=== PATIENT | male | born 1945 | race Caucasian/White ===

== ENCOUNTER 2017-01-11 14:15 | Inpatient (IN) ==
--- NOTE | 2017-01-11 15:39 | HISTORY AND PHYSICAL ---
HISTORY OF PRESENT ILLNESS: This is a 71-year-old white male, well known to me. He has had just in the last month or two, he has gained fluid weight, can feel swelling in his legs and abdomen. Feels more short of breath. Some increased orthopnea and general weakness. Denies fever or chills. Denies chest pain or palpitations. PAST MEDICAL HISTORY: 1. Left shoulder surgery 1977 for shoulder. 2. Perianal cyst operated on 1993 and then again perirectal abscess 01/21/09. First one was done by Dr. Mcneill and second one by Dr. Reyes. 3. Vasectomy 13 years ago. 4. Broken nose in the past. 5. Fracture 4th digit left hand. 6. Diabetes mellitus type 2 which he has had for going on 20 years. 7. History of septicemia several years ago. 8. The patient was hospitalized for an incisive canal cyst and received local surgical debridement. 9. Cataract surgery. MEDICATIONS: I will review his list. FAMILY HISTORY: Father of gunshot wound. Mother lived to old age. History of TB in his father. 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 Served some time I think in the [employer] in [place]. SOCIAL HISTORY: Born in [facility]. Lived in [place] most of his life. Was for a time. Negative for tobacco. Occasional alcohol. REVIEW OF SYSTEMS: General: No weight gain or loss except for the fluid weight that he is appreciating in the last couple months. HEENT: Unremarkable. Respiratory: Increased orthopnea. Increased dyspnea on exertion. Cardiovascular: No chest pain or tachy palpitation. GI: Unremarkable. : Unremarkable. Neurologic: No focal neurologic complaints. He does have some peripheral neuropathy and some pedal edema. PHYSICAL EXAMINATION: GENERAL: Well developed, well nourished, white male. EYES: Pupils are equal and round. LUNGS: Clear in all lung delarosa. CARDIOVASCULAR: Regular rhythm and rate without murmur or S3. CVP about 10 cm water pressure. ABDOMEN: Mild distention. Could appreciate mild ascites. Positive hepatojugular reflux. EXTREMITIES: With 2+ pitting edema from ankle all the way to his knee. VITAL SIGNS: Blood pressure 130/90, pulse 84, respirations 18, weight 264 pounds. He was 240 pounds back in October. ASSESSMENT AND PLAN: 1. Recent echocardiogram showed ejection fraction 15%. Cardiomyopathy of unknown etiology. Suspect probable ischemic cardiomyopathy. I did an ultrasound of his abdomen and he has some mild ascites. I also can appreciate some pleural effusion. There is global hypokinesis, ejection fraction more prominent hypokinesis in the distal anterior chamber as well as apical portions. He has also had some trouble with constipation. We are going to ask Cardiology to help I am going to probably explore, put him on Entresto and diuresing him and looking at improving his compensation. Also need to explore why he has this cardiomyopathy. Eventually he will need a left heart catheterization. 2. Diabetes mellitus type 2. Check his renal function. It is complicated by peripheral neuropathy. We will check pattern sugars. Put him on sliding scale. 3. Hypertension. 4. Hypercholesterolemia. cc: Arik Santoro MD
[2017-01-11] MEDS ORDERED: SALINE LOCK IV FLUID XX ONE (16:13)
[2017-01-11 17:05] LABS: MANUAL DIFF NEEDED? NO
[2017-01-11 17:07] LABS: BASO% 0.3 % (0.0-0.8); EOS# 0.12 X1000 (0.0-0.7); HEMATOCRIT 43.3 % (42.0-52.0); HEMOGLOBIN 13.9 g/dL (14.0-18.0); LYMPH# 1.03 X1000 (1.2-3.4); LYMPH% 17.3 % (20.5-51.1); MCH 28.7 PG (27-31); MCHC 32.1 g/dL (33-37); MCV 89.5 FL (81-99); MONO# 0.83 X1000 (0.11-0.59); MONO% 13.9 % (1.7-9.3); MPV 11.4 FL (7.4-10.4); NEUT% 66.5 % (42.2-75.2); PLT 176 X1000 (130-400); RBC 4.84 XMIL (4.7-6.1)
[2017-01-11] MEDS ORDERED: [UNRECOGNIZED DRUG - OTHER] IV ONE (17:38)
[2017-01-11] MEDS ORDERED: [UNRECOGNIZED DRUG - MIXTURE] IV ONE (18:00)
[2017-01-11] MEDS: NATRECOR 1.5 MG in NS 250 ML IV SCH (18:32)
[2017-01-11] MEDS: LASIX IV SCH (18:33)
[2017-01-11] MEDS: LANOXIN IV SCH ×2 (18:33→23:05)
[2017-01-11 18:41] LABS: AGAP 10; BUN 12 mg/dL (8-22); CALCIUM 8.5 mg/dL (8.8-10.2); CHLORIDE 104 mmol/L (98-107); COSMO 288; POTASSIUM 4.8 mmol/L (3.5-5.1); SODIUM 144 mmol/L (136-145); TCO2 30 mmol/L (25-35)
[2017-01-11] MEDS: CAPOTEN PO SCH (20:51)
[2017-01-11] MEDS ORDERED: ENTRESTO 49 MG-51 MG TABLET PO SCH (21:00)
[2017-01-11] MEDS: CARAFATE PO SCH (21:07)
[2017-01-11] MEDS: GLUCOTROL PO SCH (21:07)
[2017-01-11] MEDS: REGLAN PO SCH (21:07)
--- NOTE | 2017-01-11 21:37 | CONSULTATION ---
DATE OF CONSULTATION: 01/11/2017 CONSULTATION REQUESTED BY: Arik Santoro MD REASON FOR CONSULTATION: Congestive heart failure. HISTORY: Mr. Munoz is a pleasant 71-year-old male who presented to Dr. Santoro's office with complaints of 4-5 weeks of increasing swelling of the lower extremities, paroxysmal nocturnal dyspnea, cough, dry for the most part, a general feeling of not doing well. Appetite has not been too good. The patient was referred for upper and lower endoscopies because he had some constipation issues and they did not see anything significant. The patient actually mentions that they identified a duodenal ulcer on him. The patient was referred also to have an echocardiogram about a week ago on January 04 which revealed dilatation of the left ventricle with significantly impaired function. The next day they did a contrast study with Definity and it showed a significantly impaired ejection fraction as well as significant diastolic dysfunction. The patient denies having any history of angina pectoris or previous myocardial infarction. He says that in August he was not very active. He has some limitations to exercise because of some peripheral neuropathy. PAST MEDICAL HISTORY: His past history is positive for diabetes mellitus for about 15 years. He has been treated with medications. PAST SURGICAL HISTORY: He does not have any significant surgical history. HOME MEDICATIONS: His home medications at the time of admission are not listed. ALLERGIES: He has no reported allergies. FAMILY HISTORY: His family history is noncontributory. SOCIAL HISTORY: He lives by himself. He has been from his second for about 6 years. 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 The patient has been a smoker in the past, up to 4 packs a day, however, he quit about 25 years ago. He had 3 grownup children. Daughter was in the room with him. REVIEW OF SYSTEMS: Review of systems beyond the fact that he has discomfort in the legs from "neuropathy" and he is really not very motivated to exercise is noncontributory. PHYSICAL EXAMINATION: Vital signs: Today weight is 256 pounds. The patient says that his normal weight is no more than 230 pounds. Temperature is 97.8. Pulse 101. Respirations 18. Blood pressure 127/85. The patient is awake, alert, oriented, in no distress. HEENT: Jugular veins are distended all the way up to the angle of the jaw. Chest: His chest shows significantly diminished breath sounds at the bases. There is some dullness to percussion. Cardiac: Heart sounds are tachycardic. There is a summation gallop. They are distant. There are some extrasystoles noted. Abdomen: Distended. No hepatomegaly is noted. There is questionable ascites on physical exam. He does have edema of the abdominal wall. Extremities: Showed 3+ edema bilaterally with diminished pulses. There are some dystrophic skin changes in the pretibial area bilaterally. 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 Neurologic: He moves four extremities, follows commands. Speech is clear. Cranial nerves appear to be normal. LABORATORY DATA: A 12-lead EKG done today shows sinus tachycardia with nonspecific T wave in the precordial leads, V1, V2, frequent PVCs, possible inferior infarct. IMPRESSION: 1. Patient presenting with symptoms of progressive dyspnea and weight gain with obvious generalized edema. He appears to be in Class D of congestive heart failure, Functional Class IV, [place] [employer]. Systolic dysfunction, probably chronic, with acute exacerbation. 2. Questionable coronary heart disease, abnormal EKG showing possible inferior scar. 3. Long-term history of diabetes mellitus. 4. Long-term history of tobacco use. 5. Recent diagnosis of duodenal/peptic ulcer. RECOMMENDATIONS: At this point in time, we will treat the patient for this acute fluid retention/exacerbation of congestive heart failure with combination of vasodilator, Captopril, initially at low dose, and then we will up titrate according to his tolerance. We will put him on digoxin and intravenous Natrecor as well as Lasix. We will check his electrolytes daily. We will make changes to his medications accordingly. The patient really needs to achieve euvolemia before we launch any extensive investigation to determine the underlying etiology of his congestive heart failure. At this point in time, based on the review of the echocardiogram, this could be a case of idiopathic dilated cardiomyopathy. At any rate, further investigations should be done once the patient is in a euvolemic state. His prognosis is definitely guarded given his age and severity of his left ventricular dysfunction and severity of his congestion. Will follow him along. Thank you for the opportunity to participate in his evaluation. cc: MD Arik Vargas MD
[2017-01-12] MEDS: LASIX IV SCH ×2 (05:05→17:23)
[2017-01-12] MEDS: CAPOTEN PO SCH ×3 (05:06→21:26)
[2017-01-12] MEDS: LANOXIN IV SCH ×2 (05:06→11:44)
--- NOTE | 2017-01-12 05:11 | EKG Report ---
Test Performed on : 01/11/2017 4:52:44 PM Test Reason : CHF/arrhythmia Blood Pressure : / mmHG Vent. Rate : 103 BPM Atrial Rate : 103 BPM P-R Int : 134 ms QRS Dur : 080 ms QT Int : 386 ms P-R-T Axes : 057 -11 022 degrees QTc Int : 505 ms Sinus tachycardia. with premature supraventricular complexes. and with occasional premature ventricu lar complexes. Possible Inferior infarct , age undetermined Abnormal ECG No previous ECGs available Confirmed by Ta Leong MD ([id number]) on 01/12/2017 7:58:09 AM
[2017-01-12 05:57] LABS: AGAP 11; BUN 11 mg/dL (8-22); CALCIUM 8.5 mg/dL (8.8-10.2); CHLORIDE 103 mmol/L (98-107); COSMO 289; MAGNESIUM 1.2 mg/dL (1.5-2.7); POTASSIUM 4.5 mmol/L (3.5-5.1); SODIUM 146 mmol/L (136-145); TCO2 32 mmol/L (25-35)
--- NOTE | 2017-01-12 07:19 | EKG Report ---
Test Performed on : 01/12/2017 06:38:21 AM Test Reason : Heart Failure Admission Blood Pressure : / mmHG Vent. Rate : 102 BPM Atrial Rate : 102 BPM P-R Int : 144 ms QRS Dur : 074 ms QT Int : 370 ms P-R-T Axes : 060 -35 -41 degrees QTc Int : 482 ms Sinus tachycardia. Left axis deviation Inferior infarct (cited on or before 11-JAN-2017) Abnormal ECG When compared with ECG of 11-JAN-2017 16:52, (Unconfirmed) premature ventricular complexes. are no longer present premature supraventricular complexes. are no longer present Confirmed by Salo WATKINS, Ta Lopez ([id number]) on 01/12/2017 7:59:00 AM
[2017-01-12] MEDS ORDERED: MAGNESIUM SULFATE 4 GM/S.W.I. 4 GM/100 ML IVPB IV ONE (07:29)
--- NOTE | 2017-01-12 07:35 | Diag Imaging Result Doc PS360 ---
EXAM: CHEST-2 VIEWS INDICATION: Heart Failure TECHNIQUE: 2 views COMPARISON: None. FINDINGS: Lung volumes are very low. There is blunting of the left costophrenic angle indicating a small effusion. There is suggestion of bibasilar atelectasis. There is crowding of the central vasculature. Cardiac silhouette is probably borderline prominent given magnification from AP technique. IMPRESSION: 1.Low lung volumes and bibasilar atelectasis. 2.Small left pleural effusion. 3.Borderline prominent heart. Electronically signed by Francis Hicks 01/12/2017 7:33 AM
[2017-01-12] MEDS: MIRALAX PO SCH (08:28)
[2017-01-12] MEDS: PRILOSEC PO SCH (08:29)
[2017-01-12] MEDS: CARAFATE PO SCH ×4 (08:30→21:26)
[2017-01-12] MEDS: LOVENOX SUBQ SCH (08:31)
[2017-01-12] MEDS: GLUCOTROL PO SCH ×2 (08:31→21:26)
--- NOTE | 2017-01-12 09:22 | PROGRESS NOTE ---
DATE: 01/12/2017 CHIEF COMPLAINT: Swelling, shortness of breath. SUBJECTIVE: The patient is breathing a little better. He has been diuresing all night. He feels like he has lost some weight, although objectively we do not have any documentation of that. He denies having any chest pain. His telemetry indicates that he is in sinus rhythm. His EKG this morning shows sinus tachycardia with left axis deviation. No acute ischemic changes. OBJECTIVE: Vital signs: Blood pressure 104/73, temperature 97.9, pulse 100, respirations 16. General: He is awake, alert, oriented, in no distress. HEENT: Jugular veins are still prominent. Chest: Diminished breath sounds at the bases. Some dullness to percussion at the bases. Cardiac: Heart sounds are regular and rhythmic, questionable gallop. Abdomen: Obese, distended. There is some ascites present. Extremities: Showed edema 2-3+. Neurologic: Follows commands, moves four extremities. LABORATORY DATA: Blood work today: Sodium 146, potassium 4.5, BUN 11, creatinine 1.1, magnesium 1.2. Pro BNP yesterday was 18,660. IMPRESSION: 1. Patient presenting with a relatively acute case of systolic congestive heart failure, class IV of the [place] [employer], with dyspnea at rest, paroxysmal nocturnal dyspnea. He has practically anasarca edema. 2. Patient who has a remote history of being a smoker. 3. History of diabetes mellitus type 2. 4. Recent diagnosis of duodenal ulcer. RECOMMENDATIONS: At this point in time, we will continue with IV Natrecor, digoxin, and the usual daily weight and fluid restriction measures. Because his magnesium is low, we will replace it. We will put him on Lovenox for deep venous thrombosis prophylaxis. Further advice will be forthcoming. cc: MD Arik Vargas MD
--- NOTE | 2017-01-12 09:50 | PROGRESS NOTE ---
DATE: 01/12/2017 SUBJECTIVE: He states he feels better, breathing better, more comfortable. Dr. Mauro has evaluated him. OBJECTIVE: Vital Signs: Temp 97.9 degrees, pulse 100, respirations 16, blood pressure 104/73. HEENT: Pupils are equal, round. Lungs: Clear in all lung delarosa. Cardiovascular: Regular rhythm and rate without murmur or S3. Abdomen: Soft. Skin: Warm and dry. Good urine output. LAB/DIAGNOSTIC DATA: White count 5950, hematocrit 43, platelet count 176,000. Sodium 146, potassium 4.5, chloride 103, BUN 11, creatinine 1.1. Magnesium is 1.20. Chest x-ray: Low lung volumes, bibasilar atelectasis, small left pleural effusion. Borderline prominent heart. ASSESSMENT/PLAN: Stage IV Beauregard classification of heart failure. Echo shows diffuse dyskinesis and less suggestive of coronary insufficiency. There are no areas of thinning of the wall and it was very symmetrical, consistent more with idiopathic. Question the patient, he has not drunk alcohol at any substantial level in several years. Note the magnesium is low. We will supplement. Since there is no data right now on acute congestive heart failure, will not use the Entresto but use TEA inhibitor. Use the captopril and eventually get him on some beta blockers as well. We will continue to diurese with 40 mg IV Lasix q.12 hours. We need to supplement the potassium and magnesium. cc: Arik Santoro MD
[2017-01-12] MEDS: POTASSIUM CHLORIDE 20% LIQUID PO SCH ×2 (11:41→21:27)
[2017-01-12] MEDS: MAG-OX PO SCH ×2 (11:41→21:27)
[2017-01-12] MEDS: NATRECOR 1.5 MG in NS 250 ML IV SCH ×2 (12:53→15:07)
[2017-01-12] MEDS: REGLAN PO SCH (21:26)
[2017-01-13] MEDS: LASIX IV SCH ×2 (05:14→17:42)
[2017-01-13] MEDS: CAPOTEN PO SCH ×3 (05:15→20:32)
--- NOTE | 2017-01-13 09:14 | PROGRESS NOTE ---
DATE: 01/13/2017 SUBJECTIVE: Mr. Munoz feels better. He can tell the fluid is coming off, especially his lower extremities and his breathing has improved. No chest pain or palpitations. He is comfortable. OBJECTIVE: Vital Signs: He remains afebrile. Temperature 98.9 degrees, pulse 102, respirations 18, blood pressure 108/74. HEENT: Pupils are equal. His CVP is less than 6 cm. No distended neck veins. Respiratory: Lungs are clear anterolateral. Cardiovascular: Regular rhythm and rate without murmur or By his report, he has good urine output. Blood pressures have been running between 104-153 and diastolic in the 70s. ASSESSMENT/PLAN: 1. Global dyskinesis of the left ventricle, cardiomyopathy, suspect idiopathic cardiomyopathy. He really has no history of alcohol abuse. He does not appear to be ischemic. He is improving with diuresis and afterload reduction at the present time. He is on captopril 6.25 mg q8. He is getting Lasix 40 mg IV q.12 hours. 2. Diabetes mellitus type 2. Continue his glipizide 5 mg b.i.d. 3. Hypomagnesemia. We have supplemented. Continue to give p.o. and give him some IV magnesium. 4. Hypercholesterolemia. Aware. We will check a lipid profile to see where we are. He would benefit from a statin. cc: Arik Santoro MD
[2017-01-13] MEDS: MAG-OX PO SCH ×2 (09:35→20:33)
[2017-01-13] MEDS: CARAFATE PO SCH ×4 (09:35→20:33)
[2017-01-13] MEDS: PRILOSEC PO SCH (09:35)
[2017-01-13] MEDS: GLUCOTROL PO SCH ×2 (09:35→20:33)
[2017-01-13] MEDS: LOVENOX SUBQ SCH (09:36)
[2017-01-13] MEDS: POTASSIUM CHLORIDE 20% LIQUID PO SCH ×2 (09:36→20:32)
[2017-01-13] MEDS: MIRALAX PO SCH (09:36)
[2017-01-13] MEDS: NATRECOR 1.5 MG in NS 250 ML IV SCH (11:29)
--- NOTE | 2017-01-13 13:17 | PROGRESS NOTE ---
DATE: 01/13/2017 SUBJECTIVE: Patient denies dyspnea on supplemental oxygen per nasal cannula. There has been no chest pain. OBJECTIVE: Vital Signs: Blood pressure ranging from 81/51 to 108/74. Heart rate 100-110 with ECG monitor showing sinus rhythm. Neck: Vein distention still evident. Chest: Auscultation of the chest reveals diminished breath sounds at bases bilaterally. Cardiac Exam: Reveals a regular rate and rhythm without appreciable murmur or gallop. Extremities: Demonstrate 2+ edema. IMPRESSION: 1. Acute systolic heart failure. 2. Type 2 diabetes mellitus. 3. Recent diagnosis of duodenal ulcer. 4. Remote history of cigarette use. RECOMMENDATIONS: 1. Continue diuresis with intravenous Lasix, intravenous Natrecor. 2. Continued to give low-dose captopril as tolerated depending on pressure. Once diuresis is further along we may have more success in giving him captopril. cc: MD Arik De Anda MD
[2017-01-13] MEDS: REGLAN PO SCH (20:33)
[2017-01-14 05:09] LABS: HDL 32 mg/dL (35-55); LDL 58 mg/dL; TRIGLYCERIDES 121 mg/dL (39-160); VLDL 24 mg/dL
[2017-01-14 05:10] LABS: AGAP 8; BUN 15 mg/dL (8-22); CALCIUM 8.8 mg/dL (8.8-10.2); CHLORIDE 98 mmol/L (98-107); COSMO 287; POTASSIUM 4.2 mmol/L (3.5-5.1); SODIUM 143 mmol/L (136-145); TCO2 37 mmol/L (25-35)
[2017-01-14] MEDS: LASIX IV SCH ×2 (05:36→17:23)
[2017-01-14] MEDS: CAPOTEN PO SCH ×3 (05:36→20:01)
[2017-01-14] MEDS: PRILOSEC PO SCH (09:31)
[2017-01-14] MEDS: CARAFATE PO SCH ×4 (09:31→20:01)
[2017-01-14] MEDS: POTASSIUM CHLORIDE 20% LIQUID PO SCH ×2 (09:31→20:01)
[2017-01-14] MEDS: GLUCOTROL PO SCH ×2 (09:31→20:01)
[2017-01-14] MEDS: MAG-OX PO SCH ×2 (09:31→20:01)
[2017-01-14] MEDS: LOVENOX SUBQ SCH (09:32)
--- NOTE | 2017-01-14 10:27 | PROGRESS NOTE ---
DATE: 01/14/2017 SUBJECTIVE: Mr. Munoz is feeling much better. Breathing much better. He has lost about 36 pounds of fluid. OBJECTIVE: Vital signs: Remains afebrile. Temp 98.3 degrees, pulse 98, respirations 18, blood pressure 116/55. HEENT: Pupils are equal, round. Lungs: Clear in all lung delarosa. Cardiovascular: Regular rhythm and rate without murmur or S3. Abdomen: Soft. Skin: Warm and dry. : Urine output 1800 to 1900 mL. LABS: Blood sugars 91, 94, 112. ASSESSMENT AND PLAN: 1. Acute systolic heart failure. Responding to diuresis. Lost 36 pounds of fluid. Feels much better. Breathing much better. Continue present regimen. I anticipate he might be able to go home tomorrow. 2. Diabetes mellitus type 2. 3. Recent diagnosis of duodenal ulcer. 4. History of cigarette use. 5. Nutrition looks good. 6. History of hypercholesterolemia. REVIEW OF HIS ORDERS: He is on captopril 6.25 mg q.8 hours. He is on Lasix 40 mg IV q.12 hours, glipizide 5 mg b.i.d., magnesium oxide 800 mg b.i.d. His renal function is doing well. His magnesium was 1.5. Recheck electrolytes and magnesium again tomorrow. cc: Arik Santoro MD
--- NOTE | 2017-01-14 11:01 | Diag Imaging Result Doc PS360 ---
EXAM: CHEST-2 VIEWS HISTORY: pulmonary edema TECHNIQUE: COMPARISON: 01/12/2017 FINDINGS: Poor inspiratory effort. There are small pleural effusions. The heart is not enlarged. There is basilar atelectasis versus small infiltrates. Overall the findings are slightly less pronounced than on the prior exam. IMPRESSION: Mild interval improvement Electronically signed by Nicho Damico 01/14/2017 10:59 AM
[2017-01-14] MEDS: NATRECOR 1.5 MG in NS 250 ML IV SCH (11:05)
[2017-01-14] MEDS: MIRALAX PO SCH (13:04)
--- NOTE | 2017-01-14 17:44 | PROGRESS NOTE ---
DATE: 01/14/2017 SUBJECTIVE: Patient relates feeling better. He denies dyspnea on room air. There has been no chest pain. OBJECTIVE: Vital Signs: Blood pressure 116/70, heart rate 102 and regular. Neck: Jugular venous pressure appears to be normal. Chest: Auscultation of the chest reveals minimal inspiratory crackles in the bases bilaterally. Cardiac Exam: Reveals a regular rate and rhythm without appreciable gallop. Extremities: Demonstrate mild pretibial edema. LAB DATA: Includes BUN 15, creatinine 1.1, potassium 4.2. IMPRESSIONS: 1. Acute systolic heart failure, improving. 2. Type 2 diabetes mellitus. 3. Recent diagnosis of duodenal ulcer. 4. Remote history of cigarette use. RECOMMENDATIONS: 1. Slow diuresis but continue to use intravenous Lasix. Discontinue Natrecor. 2. Increase low-dose captopril as tolerated. cc: MD Arik De Anda MD
[2017-01-14] MEDS: REGLAN PO SCH (20:01)
[2017-01-15 05:21] LABS: CALCIUM 8.8 mg/dL (8.8-10.2); POTASSIUM 4.8 mmol/L (3.5-5.1)
[2017-01-15] MEDS: LASIX IV SCH (06:02)
[2017-01-15] MEDS: CAPOTEN PO SCH (06:02)
[2017-01-15 07:44] VITALS: BP 101/57
[2017-01-15] MEDS: GLUCOTROL PO SCH (08:59)
[2017-01-15] MEDS: PRILOSEC PO SCH (08:59)
[2017-01-15] MEDS: MIRALAX PO SCH (08:59)
[2017-01-15] MEDS: CARAFATE PO SCH (08:59)
[2017-01-15] MEDS: MAG-OX PO SCH (09:00)
[2017-01-15] MEDS: LOVENOX SUBQ SCH (09:00)
[2017-01-15] MEDS: POTASSIUM CHLORIDE 20% LIQUID PO SCH (09:00)
--- NOTE | 2017-01-15 09:26 | DISCHARGE SUMMARY ---
ADMISSION DATE: 01/11/2017 DISCHARGE DATE: 01/15/2017 HISTORY AND HOSPITAL COURSE: This is a 71-year-old white male, well known to me. He presented on 01/11/2017 discharged on 01/15/2017. He has had about a month where he has had swelling, feels poor, general malaise, weakness, shortness of breath. Complicated by epigastric pain. Had an EGD and found he had a gastric ulcer, but still complaining of shortness of breath. Denies any chest pain, did an echocardiogram on him and found global hypokinesis. Ejection fraction 15%. Admitted, diuresed him to which he responded well. Initially was going to put him on Entresto, but there is no literature on acute heart failure, so we put him on captopril and he responded well. Diuresed almost 40 pounds of fluid. Clemons he could go home on 01/15/2017. PAST MEDICAL HISTORY: Reviewed. 1. Left shoulder surgery 1977 for shoulder. 2. Perianal cyst, operated on 1993. Again, perirectal abscess 01/21/2009. First one was done by Dr. Mcneill, second one by Dr. Reyes. 3. Vasectomy 13 years ago. 4. Broken nose in the past. 5. Fracture 4th digit left hand. 6. Diabetes mellitus type 2 which has been going on for 20 years. 7. Had septicemia several years ago. 8. Was hospitalized for incisive canal cyst and received local surgical debridement. 9. Cataract surgery. 10. Recent diagnosis of a gastric ulcer. LABS: Magnesium was a little low we supplemented and felt he could go home. DISCHARGE MEDICATIONS: Are as follows: Captopril, which is Capoten 12.5 mg 3 times a day. Lasix 40 mg p.o. twice a day. Glucotrol 5 mg b.i.d.; Mag-Ox 800 mg b.i.d.; Reglan, he takes 10 mg p.o. at bedtime. Prilosec 40 mg a day. MiraLAX 17 g p.o. daily as needed. Potassium chloride, we stopped. I will give him Klor-Con 20 mEq twice a day. Carafate 1 g 4 times a day. PLAN: See back in my office in about a week. Set him up to see Dr. Mauro in 2 weeks. We will need to pursue left heart catheterization of his coronaries at some point, but appears much better compensation. I suspect this may be idiopathic cardiomyopathy. He has a global hypokinesis with ejection fraction of 15%. Will follow up with echocardiogram to see if this improves at a later time. cc: Arik Santoro MD
[2017-01-15] MEDS ORDERED: PREVNAR 13 IM ONE (10:17)
[2017-01-15] MEDS ORDERED: PNEUMOVAX 23 IM ONE (10:24)
== END 2017-01-15 10:36 | disposition home or self-care (01) ==
LOC: DIRADM 14:15 → 3S 15:58
PROVIDERS: ADMIT Emergency Medicine; ATTEND Emergency Medicine

== ENCOUNTER 2019-02-11 15:16 | Inpatient (IN) ==
--- NOTE | 2019-02-11 16:25 | Diag Imaging Result Doc PS360 ---
EXAM: CHEST-1 VIEW INDICATION: sob TECHNIQUE: One view COMPARISON: 07/05/2017 FINDINGS: There is stable elevation of the right hemidiaphragm. There is suggestion of mild right basilar atelectasis. The lungs are grossly clear, otherwise. There is no discrete pleural fluid collection or pneumothorax. There are stable median sternotomy wires. The cardiac silhouette is borderline prominent. Central vasculature is unremarkable. IMPRESSION: No evidence of acute pathology by plain radiograph. Electronically signed by Francis Hicks 02/11/2019 4:23 PM
[2019-02-11 16:31] LABS: BASO# 0.02 X1000 (0.0-0.2); BASO% 0.1 % (0.0-0.8); HEMOGLOBIN 12.2 g/dL (14.0-18.0); IMM GRAN# 0.19 X1000 (0.0-0.04); IMM GRAN% 0.7 % (0.0-0.5); LYMPH# 1.12 X1000 (1.2-3.4); LYMPH% 4.4 % (20.5-51.1); MCH 28.7 PG (27-31); MCHC 33.9 g/dL (33-37); MCV 84.7 FL (81-99); MONO# 2.75 X1000 (0.11-0.59); MONO% 10.8 % (1.7-9.3); MPV 12.3 FL (7.4-10.4); NEUT# 21.39 X1000 (1.4-6.5); PLT 137 X1000 (130-400); PROTIME 15.9 Seconds (11.0-16.0); RBC 4.25 XMIL (4.7-6.1); RDW 13.6 % (11.5-14.5); WBC 25.47 X1000 (4.8-10.8)
[2019-02-11 16:32] LABS: INR 1.18
--- NOTE | 2019-02-11 16:32 | EKG Report ---
Test Performed on : 02/11/2019 4:30:12 PM Test Reason : CHF Blood Pressure : / mmHG Vent. Rate : 086 BPM Atrial Rate : 086 BPM P-R Int : 138 ms QRS Dur : 096 ms QT Int : 420 ms P-R-T Axes : 053 -22 067 degrees QTc Int : 502 ms Sinus rhythm. with occasional premature ventricular complexes. Moderate voltage criteria for LVH, may be normal variant Prolonged QT Abnormal ECG When compared with ECG of 05-JUL-2017 22:48, premature ventricular complexes. are now present T wave inversion no longer evident in Lateral leads QT has lengthened Unconfirmed Result
[2019-02-11 16:33] LABS: PTT 31.5 Seconds (22.3-41.8)
--- NOTE | 2019-02-11 16:50 | Diag Imaging Result Doc PS360 ---
EXAM: FOOT COMPLETE RIGHT INDICATION: foot pain, possible osteomyelitis TECHNIQUE: 3 views COMPARISON: None. FINDINGS: There is degenerative bone spurring at the distal tibia and the calcaneus. There are degenerative changes at the first MTP joint. There is no discrete fracture, dislocation, or significant intrinsic osseous lesion, otherwise. There are soft tissue ulcerations adjacent to the first MTP joint. However, no discrete bony erosions are identified to indicate osteomyelitis by plain radiograph. IMPRESSION: Soft tissue ulceration overlying the first MTP joint but no definite sign of osteomyelitis by plain radiograph. Electronically signed by Francis Hicks 02/11/2019 4:47 PM
--- NOTE | 2019-02-11 16:52 | Diag Imaging Result Doc PS360 ---
EXAM: FOOT COMPLETE LEFT INDICATION: injury TECHNIQUE: 3 views COMPARISON: None. FINDINGS: There is subcutaneous soft tissue gas and edema at the dorsum and undersurface of the forefoot indicating cellulitis. No underlying bony erosions are identified to indicate osteomyelitis by plain radiograph. There are bone spurs at the calcaneus and distal tibia. There is no discrete fracture, dislocation, or significant intrinsic osseous lesion, otherwise. IMPRESSION: Soft tissue edema and subcutaneous gas at the foot but no radiographic evidence of osteomyelitis on the current study. Electronically signed by Francis Hicks 02/11/2019 4:50 PM
[2019-02-11 16:53] LABS: ALB/GLOB RATIO 0.8; ALBUMIN 2.6 g/dL (3.5-5.0); CALCIUM 7.8 mg/dL (8.8-10.2); CREATININE 1.7 mg/dL (0.7-1.2); POTASSIUM 4.3 mmol/L (3.5-5.1); TOTAL BILIRUBIN 1.17 mg/dL (0.20-1.00); TOTAL PROTEIN 5.7 g/dL (6.3-8.3)
[2019-02-11] MEDS ORDERED: LEVAQUIN 500 MG/D5W 500 MG/100 ML IVPB IV SCH (17:45)
--- NOTE | 2019-02-11 18:58 | PROVIDER DOCUMENTATION ---
This chart was entered by Shruthi Zacarias Scribe, acting as scribe for Victor Manuel Stone MD. HPI-General Adult - General Chief Complaint: Shortness of Breath Stated Complaint: WEAKNESS Time Seen by Provider: 02/11/19 15:49 Source: patient Allergies/Adverse Reactions: Patient Allergies Allergy/AdvReac Type Severity Reaction Status Date / Time No Known Allergies Allergy Verified 08/29/17 11:20 Home Medications: Home Medication List Medication Instructions Recorded Confirmed Last Taken Type Glipizide 5 mg PO BID 01/11/17 08/29/17 07/05/17 09:30 History Omeprazole 40 mg PO DAILY 01/11/17 08/29/17 07/05/17 09:30 History Carvedilol [Coreg] 6.25 mg PO BID 07/05/17 08/29/17 07/05/17 09:30 History Digoxin [Lanoxin] 125 mcg PO QAM 07/05/17 08/29/17 07/05/17 09:30 History Magnesium Oxide 2 each PO BID 07/05/17 08/29/17 Unknown History Sucralfate [Carafate] 1 gm PO DIRECTED 07/05/17 08/29/17 Unknown History Aspirin 325 mg PO DAILY 08/29/17 08/29/17 Unknown History Atorvastatin Calcium [Lipitor] 40 mg PO HS 08/29/17 08/29/17 Unknown History Hydrocodone/Acetaminophen [[place] 1 each PO PRN PRN 08/29/17 08/29/17 Unknown History 5-325 Tablet] Insulin Glargine [Lantus] 20 unit SUBQ QAM 08/29/17 08/29/17 Unknown History Lisinopril 2.5 mg PO HS 08/29/17 08/29/17 Unknown History Sodium Hypochlorite 0.0125% 1 applic TOP DAILY 08/29/17 08/29/17 Unknown History [Dakin's Solution 0.0125%] - History of Present Illness -Gen Adult Nature of Presenting Problems: Patient is a 73 year old male who presents to the ED via EMS with shortness of breath, nausea, vomiting, diarrhea and bilateral feet pain. Patient states symptoms have been present for 6 days. Patient does not report chest pain. Location of Pain/Injury: reports: feet (bilateral) Pain Radiation: reports: no radiation Quality of Pain: reports: aching Severity: reports: mild Onset/Duration: reports: 6 days ago Timing: reports: still present Context/Activities at Onset: reports: light activity Modifying Factors: improves with: nothing Associated Symptoms: reports: diarrhea, nausea, shortness of breath, vomiting Similar Symptoms Previously?: Yes Recently seen or treated by another doctor?: No Review of Systems - Adult - REVIEW OF SYSTEMS - ADULT Constitutional: reports: no symptoms reported. denies: chills, fever, fatique Eyes: reports: no symptoms reported Ears, Nose, Mouth & Throat: reports: no symptoms reported Cardiovascular: reports: no symptoms reported Respiratory: reports: see HPI, shortness of breath. denies: cough, wheezing Gastrointestinal: reports: see HPI, diarrhea, nausea, vomiting. denies: abdominal pain Genitourinary: reports: no symptoms reported Musculoskeletal: reports: see HPI, other (bilateral feet pain). denies: back pain, neck pain Integumentary: reports: no symptoms reported Neurological: reports: no symptoms reported Psychiatric: reports: no symptoms reported Endocrine: reports: no symptoms reported Hematologic/Lymphatic: reports: no symptoms reported Allergic/Immunologic: reports: no symptoms reported All Other Systems: Reviewed and Negative Past History - Adult - PAST MEDICAL HISTORY-ADULT Review of Records: reports: Old Records Reviewed, Nursing Assessment Review, Medications Reviewed, Social history reviewed & non-contributory. Major Childhood Illnesses: reports: denies history Cardiovascular: reports: CHF Respiratory: reports: denies history Gastrointestinal: reports: denies history Obstetrical/Gynecological: reports: denies history Genitourinary: reports: denies history Musculoskeletal: reports: denies history Neurological: reports: denies history Endocrine/Immune: reports: Diabetes Other Conditions: reports: denies history - PRIOR SURGERIES/PROCEDURES Surgical/Procedure History: reports: reviewed, not pertinent, CABG - IMMUNIZATION STATUS Childhood Immunizations: See Nurse Assessment Flu Vaccine: See Nurse Assessment - FAMILY HISTORY Family History: reviewed, not pertinent - SOCIAL HISTORY Smoking: cigarettes (former) Substance Use: alcohol Alcohol Use Frequency: occasionally Physical Exam-General - PHYSICAL EXAM-ADULT Initial Vital Signs Reviewed: Yes - CONSTITUTIONAL General Appearance: alert, no apparent distress. negative: lethargic, slow to respond - HEAD, EARS, NOSE, MOUTH & THROAT HENMT: normocephalic/atraumatic, moist mucous membranes. negative: angioedema, hearing deficit - RESPIRATORY Respiratory: chest non-tender, lungs clear, normal breath sounds. negative: crackles, rhonchi, wheezing - CARDIOVASCULAR Cardiovascular: normal peripheral pulses, regular rate, rhythm. negative: tachycardia, systolic murmur - GASTROINTESTINAL (ABDOMEN) Abdominal Exam: normal bowel sounds, non tender, soft. negative: guarding, rebound - MUSCULOSKELETAL Extremity: other (open skin wounds to balls of bilateral feet. open skin wound to left foot has surrounding erythema and swelling with drainage present.). negative: deformity, pulse deficit - SKIN Integumentary: other (open skin wounds to balls of bilateral feet. open skin wound to left foot has surrounding erythema and swelling with drainage present.) . negative: cyanosis, ecchymosis, jaundice, rash - NEUROLOGIC Neurologic: grossly normal. negative: aphasia, facial droop - PSYCHIATRIC Psych/Mental Status: normal mood/affect, oriented x 3. negative: anxious Progress - PLAN OF CARE/RESULTS Progress/Plan/Lab Results: Vital Signs - 8 hr 02/11/19 15:40 Temperature 98 F Pulse Rate 90 Respiratory Rate 14 Blood Pressure 138/69 O2 Sat by Pulse Oximetry 99 Orders Category Date Time Status cxr [CHEST-1 VIEW] [RAD] Stat Exams 02/11/19 16:00 Taken CBC WITH ELECTRONIC DIFF [HEME] Stat Lab 02/11/19 15:45 Results COMPREHENSIVE METABOLIC PANEL [CHEM] Stat Lab 02/11/19 15:45 Received PRO B-NATRIURETIC PEPTIDE Stat Lab 02/11/19 15:45 Received PROTIME WITH INR [COAG] Stat Lab 02/11/19 15:45 Received PTT [COAG] Stat Lab 02/11/19 15:45 Received TROPONIN T Stat Lab 02/11/19 15:45 Received URINALYSIS [URINALYSIS] Stat Lab 02/11/19 16:06 Ordered EKG [EKG] Stat Ther 02/11/19 15:55 Ordered Result Diagrams: 02/11/19 15:45 02/11/19 15:45 - EKG 1 Time of EKG reading by physician:: 16:30 EKG Read and Signed by:: Victor Manuel Stone EKG Interpretation (*Must complete 3 of following elements*): Abnormal Rate: 86 Rhythm: sinus rhythm with occasional premature ventricular complexes Rodney: normal QRS: LVH (moderate voltage criteria, may be normal variant) [place] Interval: normal Comments: prolonged QT - XRAY 1 XRAY Study: Chest Impression: See EMR Report ( EXAM: CHEST-1 VIEW INDICATION: sob TECHNIQUE: One view COMPARISON: 07/05/2017 FINDINGS: There is stable elevation of the right hemidiaphragm. There is suggestion of mild right basilar atelectasis. The lungs are grossly clear, otherwise. There is no discrete pleural fluid collection or pneumothorax. There are stable median sternotomy wires. The cardiac silhouette is borderline prominent. Central vasculature is unremarkable. IMPRESSION: No evidence of acute pathology by plain radiograph. Electronically signed by Francis Hicks 02/11/2019 4:23 PM 02/11/19 1623 Interpreting Physician: Francis Hicks MD Dictated Date/Time: 02/11/19 1622 cc: Victor Manuel Stone MD; Arik Santoro MD) 2 XRAY: Left XRAY Study: Foot Impression: See EMR Report ( EXAM: FOOT COMPLETE LEFT INDICATION: injury TECHNIQUE: 3 views COMPARISON: None. FINDINGS: There is subcutaneous soft tissue gas and edema at the dorsum and undersurface of the forefoot indicating cellulitis. No underlying bony erosions are identified to indicate osteomyelitis by plain radiograph. There are bone spurs at the calcaneus and distal tibia. There is no discrete fracture, dislocation, or significant intrinsic osseous lesion, otherwise. IMPRESSION: Soft tissue edema and subcutaneous gas at the foot but no radiographic evidence of osteomyelitis on the current study. Electronically signed by Francis Hicks 02/11/2019 4:50 PM 02/11/19 1650 Interpreting Physician: Francis Hicks MD Dictated Date/Time: 02/11/19 1647 cc: Victor Manuel Stone MD; Arik Santoro MD) 3 XRAY: Right XRAY Study: Foot ( EXAM: FOOT COMPLETE RIGHT INDICATION: foot pain, possible osteomyelitis TECHNIQUE: 3 views COMPARISON: None. FINDINGS: There is degenerative bone spurring at the distal tibia and the calcaneus. There are degenerative changes at the first MTP joint. There is no discrete fracture, dislocation, or significant intrinsic osseous lesion, otherwise. There are soft tissue ulcerations adjacent to the first MTP joint. However, no discrete bony erosions are identified to indicate osteomyelitis by plain radiograph. IMPRESSION: Soft tissue ulceration overlying the first MTP joint but no definite sign of osteomyelitis by plain radiograph. Electronically signed by Francis Hicks 02/11/2019 4:47 PM 02/11/19 1647 Interpreting Physician: Francis Hicks MD Dictated Date/Time: 02/11/19 1645 cc: Victor Manuel Stone MD; Arik Santoro MD) - CONSULTS/PCP/HOSPITALIST Notification #1 *Consult/PCP/Hospitalist*: Dr Santoro Reason/Comments: paged at [phone] Consult Disposition: Admit (pending admit) #2 Consult: Dr Sumner Time Discussed: 19:00 Consult Disposition: Will see in ED, Admit Departure - Departure Date of Disposition Decision: 02/11/19 Time of Disposition Decision: 19:10 DIAGNOSIS: CHF (congestive heart failure), Cellulitis, Hyponatremia, Renal insufficiency Disposition: ADMITTED INPATIENT 09 Certified Medical Emergency: Emergent Condition: Fair Referrals and Follow-Ups: Arik Santoro MD [Primary Care Provider] - - Critical Care Note This patient required my direct & personal management of CC.: No Attestation - Physician/ MELIA Attestation Patient care was provided by Advanced Practice Provider:: No The physician spent face to face time with patient:: Yes Advanced Practice Provider documentation review:: Supervising physician onsite and consulted in the evaluation and care of this patient. The physician did have a face to face encounter with the patient. This chart was documented by the indicated scribe, (Shruthi Zacarias Scribe) and accurately reflects the services I performed and decisions made by me, Victor Manuel Stone MD, as attested by the provider's signature.
[2019-02-11 19:28] LABS: URINE SOURCE CLEAN CATCH
[2019-02-11 19:35] LABS: BILIRUBIN URINE NEGATIVE (NEGATIVE); BLOOD URINE MODERATE (NEGATIVE); COLOR YELLOW; GLUCOSE URINE NEGATIVE (NEGATIVE); KETONE URINE NEGATIVE (NEGATIVE); LEUKOCYTES URINE NEGATIVE (NEGATIVE); NITRITE URINE NEGATIVE (NEGATIVE); PROTEIN URINE TRACE mg/dL (NEGATIVE); SP GRAVITY URINE 1.014; TURBIDITY URINE HAZY (CLEAR); UR EPITHELIAL CELLS <10 /HPF (<10); URINE BACTERIA NEGATIVE /HPF; URINE WBC <10 /HPF (<10); UROBILINOGEN URINE NORMAL (NORMAL)
[2019-02-11] MEDS ORDERED: NS 500 ML IV ONE ×2 (20:16→23:55)
[2019-02-11] MEDS ORDERED: LOMOTIL PO PRN (23:55)
[2019-02-11] MEDS ORDERED: PRINIVIL PO SCH (23:55)
[2019-02-12] MEDS: ZOSYN 3.375 GM in NS 50 ML IV SCH ×4 (00:45→19:46)
[2019-02-12] MEDS: LOVENOX SUBQ SCH ×2 (00:46→23:03)
[2019-02-12] MEDS: NS 1,000 ML IV SCH ×2 (00:46→19:46)
[2019-02-12] MEDS: LIPITOR PO SCH ×2 (01:09→20:35)
[2019-02-12] MEDS: GLUCOTROL PO SCH ×3 (01:09→20:35)
[2019-02-12] MEDS: COREG PO SCH ×3 (01:09→20:35)
[2019-02-12] MEDS: TYLENOL PO PRN ×2 (04:25→23:15)
[2019-02-12] MEDS: PRILOSEC PO SCH ×2 (06:18→08:24)
--- NOTE | 2019-02-12 07:32 | HISTORY AND PHYSICAL ---
CHIEF COMPLAINT: Generalized weakness, diarrhea. PRESENT ILLNESS: Mr. Munoz is a 73-year-old gentleman who is brought to the emergency room by his daughter after approximately 4 days of intense diarrhea at home. She says he has not been drinking much and has only had 2 oranges and a milkshake in the past 3-4 days. He has had no appetite. Yesterday and today, he has had increased pain in his left foot and barely been able to walk to the bathroom and back. His evaluation here in the emergency room has revealed a white blood count of 25,470 and elevated BUN and creatinine, 66 and 1.7 respectively. Electrolytes are relatively normal with a sodium of 130. ER physician also noticed bandages on the soles of the feet and removed the one from the left foot which revealed a full thickness ulcer with a moderate amount of foul-smelling dark bloody drainage. He has had type 2 diabetes for over 20 years recently treated with insulin as well as glipizide. He has significant diabetic neuropathy. PAST MEDICAL HISTORY: Also remarkable for coronary artery disease. He presented with increasing edema 2 years ago and at that time, an echocardiogram showed a left ventricular ejection fraction of 15-20%. In June 2017, he had a witnessed ventricular tachycardia arrest and was seen in the emergency room here and transferred to [place] where he underwent coronary artery bypass grafting and a left carotid endarterectomy. He also has a history of previous acute pyelonephritis in 2005 and an incision and drainage of a perirectal abscess in 2008. For several months, ending in November of this year, he was followed by Dr. Rose at [facility] [place] for plantar ulcers which apparently healed but have recurred. ALLERGIES: He has no known allergies. FAMILY HISTORY: His mother of old age. His father of a gunshot wound. SOCIAL HISTORY: He is . 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 He has 2 adult daughters. He smoked years ago but not in recent years. He has only occasional social alcohol intake. REVIEW OF SYSTEMS: GENERAL: No headache, fever, chills, night sweats or weight loss. HEENT: Vision and hearing are adequate without recent changes. RESPIRATORY: Mild chronic dyspnea on exertion. No cough, wheezing or chest congestion. CARDIOVASCULAR: No recent chest pain or palpitations. No syncope or orthopnea, PND. His examination proctor is Dr. Mauro. GASTROINTESTINAL: Multiple watery bowel movements beginning day continuing through yesterday. He denies any blood in his diarrhea. No other abdominal pain. He denies any previous liver disease. He has a history of a gastric ulcer several years ago. No recent melena or bright red blood per rectum. NEUROLOGICAL: No history of strokes or seizures. PSYCHIATRIC: No memory, mood or thought disorders. PHYSICAL EXAMINATION: VITAL SIGNS: Temperature 98.8 degrees, blood pressure 139/75, pulse 90, respirations 19, O2 sat 99% on 2 liters of oxygen. GENERAL APPEARANCE: Alert, tired, elderly gentleman who is responsive. His daughter is at the bedside. SKIN: No rash but slightly decreased turgor. HEENT: Pupils are equal, round, reactive to light. Extraocular movements are intact. Oropharynx is benign. NECK: Supple with no JVD, adenopathy or bruits. There is a left carotid endarterectomy scar present. CHEST: Exam is clear bilaterally with good air movement. CARDIOVASCULAR: Regular rate and rhythm, normal S1 and S2. No S3 or murmurs are appreciated. ABDOMEN: Soft, mildly obese and nontender with active bowel. There is no guarding or rebound tenderness present. RECTAL: Deferred. EXTREMITIES: Left solis, left ankle and left foot are mildly edematous and warm with moderate increased redness. There are bilateral plantar ulcers on both soles near the first metatarsal heads with dark old blood draining after bandage removal. Sensation in his legs is diminished. Dorsalis pedis pulses are 1 to 2+ and equal. ASSESSMENT: 1. Diarrhea with dehydration and prerenal azotemia. 2. Chronic systolic congestive heart failure with history of ischemia cardiomyopathy status post CABG. 3. Type 2 diabetes mellitus treated with insulin with peripheral diabetic neuropathy. 4. Bilateral diabetic foot ulcers with cellulitis of the left foot and elevated white blood count. TREATMENT PLAN: We will cautiously IV rehydrate with normal saline. I have ordered some intravenous Zosyn for his foot ulcers. As his anion gap is normal, I doubt he has any significant lactic acidosis or sepsis. His foot ulcers may require specialized wound care and I will leave it up to Dr. Santoro to consult Dr. Moreau. I feel he would probably eventually benefit from full contact casts on both feet to heal his ulcers. I will also ask Dr. Mauro to assist in his care. cc: Nathen Sumner MD
[2019-02-12] MEDS: LANOXIN PO SCH (08:25)
[2019-02-12] MEDS: ASPIRIN PO SCH (08:25)
[2019-02-12 09:28] LABS: BASO# 0.02 X1000 (0.0-0.2); BASO% 0.1 % (0.0-0.8); EOS# 0.02 X1000 (0.0-0.7); EOS% 0.1 % (0.0-10.0); HEMATOCRIT 31.3 % (42.0-52.0); HEMOGLOBIN 10.4 g/dL (14.0-18.0); IMM GRAN# 0.13 X1000 (0.0-0.04); IMM GRAN% 0.5 % (0.0-0.5); LYMPH# 1.04 X1000 (1.2-3.4); LYMPH% 4.1 % (20.5-51.1); MCH 28.5 PG (27-31); MCHC 33.2 g/dL (33-37); MCV 85.8 FL (81-99); MONO# 2.32 X1000 (0.11-0.59); MONO% 9.1 % (1.7-9.3); MPV 12.6 FL (7.4-10.4); NEUT# 21.85 X1000 (1.4-6.5); NEUT% 86.1 % (42.2-75.2); PLT 133 X1000 (130-400); RBC 3.65 XMIL (4.7-6.1); RDW 13.6 % (11.5-14.5); WBC 25.38 X1000 (4.8-10.8)
[2019-02-12 10:04] LABS: BANDS 14 % (0-1); LYMPHS 2 % (21-51); MONO 8 % (1-9); SEGS 76 % (42-75)
[2019-02-12 10:18] LABS: CALCIUM 7.7 mg/dL (8.8-10.2); CREATININE 1.8 mg/dL (0.7-1.2); MAGNESIUM 2.5 mg/dL (1.5-2.7)
[2019-02-12] MEDS: LANTUS INSULIN SUBQ SCH (11:57)
--- NOTE | 2019-02-12 12:55 | EKG Report ---
Test Performed on : 02/12/2019 12:45:23 PM Test Reason : dyspnea Blood Pressure : / mmHG Vent. Rate : 074 BPM Atrial Rate : 074 BPM P-R Int : 138 ms QRS Dur : 098 ms QT Int : 458 ms P-R-T Axes : 044 -24 033 degrees QTc Int : 508 ms Sinus rhythm. with occasional premature ventricular complexes. Minimal voltage criteria for LVH, may be normal variant Nonspecific T wave abnormality Prolonged QT Abnormal ECG When compared with ECG of 11-FEB-2019 16:30, (Unconfirmed) No significant change was found Confirmed by Yvan WATKINS, Arik Watkins ([id number]) on 02/12/2019 3:53:26 PM
--- NOTE | 2019-02-12 13:55 | Diag Imaging Result Doc PS360 ---
CT THORAX W/O CONTRAST - 02/12/2019 INDICATION: Dyspnea, CAD, hx CHF COMPARISON: Chest x-ray 02/11/2019 FINDINGS: There is stable severe right hemidiaphragm elevation. There is some adjacent minimal atelectasis. There is mild COPD. No infiltrates or edema. There are CABG changes. Heart size is top normal. No pericardial effusion. Anemia is present. The gallbladder is rather distended. No surrounding inflammation or calcified stones. There are moderate degenerative changes of the spine. No acute or suspicious bony lesion. IMPRESSION: 1. Severe right hemidiaphragm elevation. 2. COPD. 3. Very distended gallbladder. Recommend gallbladder ultrasound. This exam was performed using automated exposure control, adjustment of mA or kV according to patient size, and/or use of iterative reconstruction technique Electronically signed by Riley Lucio 02/12/2019 1:53 PM
--- NOTE | 2019-02-12 14:00 | CARDIOLOGY CONSULTATION ---
DATE: 02/12/2019 CHIEF COMPLAINT: Shortness of breath, weakness, diarrhea. The main complaint is pain in the left foot. HISTORY OF PRESENT ILLNESS: Mr. Munoz is a pleasant 83-year-old male who is known to my service. He presented to the emergency room yesterday about 4 p.m. complaining of loose stools associated with weakness and increasing pain in the left foot and leg that has been getting worse over the preceding couple of weeks. The patient has not been eating well for several weeks. He denies having chest pain. He has foul smelling coming out of the foot. He says that he had an ulcer that had healed and then it broke out open again. He had been applying some antiseptic powder to it. He denies having chest pain, syncope, palpitations, vomiting or fever. He has experienced some chills. Of note, upon presentation did a white count was 25,170 with elevated BUN and creatinine, which was not normal for him. Initial proBNP level is 5672. Initial chest x-ray shows elevated right diaphragm with mild right basilar atelectasis. His EKG at the time of initial encounter showed sinus rhythm, rate is 86 beats per minute with nonspecific precordial T-wave change and a PVC. That EKG looks similar this morning done at 12:45 p.m. without any acute ischemic changes. PAST HISTORY: His past history is positive for severe coronary heart disease. Initial presentation 2 or 3 years ago with congestive heart failure, systolic. He actually suffered sudden cardiac . He was resuscitated and taken to [place]. Heart catheterization revealed 3 vessel coronary artery disease. He underwent coronary bypass procedure on 09/09/2016, including a mammary graft to LAD, a vein graft to right coronary artery, vein graft to marginal 1 and vein graft to diagonal 1. Subsequently, patient follow at my office. His ejection fraction from very low improved to nearly 50% and therefore AICD was not recommended. He was last seen in my office in July 2019 and he was seemingly doing well except that he had some ulcer in the right foot and we requested an arterial Doppler ultrasound to check his arterial circulation of the legs and that came back normal. Since then, he has been followed by Dr. Rk Santoro. He has carotid artery disease, chronic duodenal ulcer and tobacco use. SURGICAL HISTORY: He had coronary bypass surgery x 4 in 2017. He had also a carotid endarterectomy at that time in 2017. He has had shoulder surgery, perianal cyst twice. 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 He has been a tobacco user. FAMILY HISTORY: Noncontributory. ALLERGIES: Negative. HOME MEDICATIONS: Included: Aspirin daily, atorvastatin 40 at bedtime, carvedilol 6.25 twice a day, digoxin 0.125 daily, glipizide 5 mg twice a day, hydrocodone, acetaminophen, Sparks 5/325, Lantus insulin 20 units at bedtime. Lisinopril 2.5 at bedtime, magnesium oxide 2 tablets twice a day, omeprazole 40 mg daily, sucralfate 1 g as directed. REVIEW OF SYSTEMS: Lately, he has experienced a combination of problems with ulcers in the feet. There is pressure in the left foot with pain. Then loose stools and then increasing dyspnea. Those are the main positive. PHYSICAL EXAMINATION: Vital Signs: Blood pressure 104/53, temperature 98 degrees, pulse 74, respirations 18. Weight is 240 pounds. He appears to be acutely ill, somewhat tachypneic. HEENT: Unremarkable. Chest: Diminished breath sounds diffusely. Heart: Heart sounds are slightly tachycardia, irregular. I do not hear a gallop or murmur. Abdomen: Obese, nontender. Extremities: Showed evidence of decreased pulses with some dystrophic changes of the skin. Left foot is covered with a dressing; however, there is a foul odor coming out of the foot as in gangrene/infection. Neurologic: He follows commands for extremities. IMPRESSION: 1. Patient who presents with dyspnea, multifactorial. This appears to be happening in the setting of probable sepsis. I suspect soft tissue infection involving the left foot, cellulitis/early gangrene. 2. History of severe coronary heart disease, previous coronary bypass surgery. 3. History of systolic heart failure due to ischemic cardiomyopathy. This had resolved as per nuclear stress test that we did back in October 2017. 4. Hypokalemia. 5. Diarrhea, question of gastroenteritis or C difficile colitis. 6. Acute renal failure. RECOMMENDATIONS: At this time, the patient really needs to be treated for soft tissue infection with possible features of gangrene. Dr. Rk Santoro is at the helm of this case. We are suggesting to get Infectious Disease consultation. Also, get a CT scan of the thorax without contrast to make sure we are not missing any infiltrates in the lungs because a plain chest x-ray was suboptimal. We will check inflammatory markers, hemoglobin A1c, and we will follow him along. Cardiac-julio, we are going to get an echocardiogram as requested by Dr. Sumner last night and we will review it and advise. cc: MD Nathen Vargas MD [facility] CAMPUSBenito
[2019-02-12] MEDS ORDERED: ZYVOX 600 MG/D5W 600 MG/300 ML IVPB IV SCH (15:30)
--- NOTE | 2019-02-12 16:04 | PROGRESS NOTE ---
DATE: 02/12/2019 SUBJECTIVE: Mr. Munoz still feels pretty rough. OBJECTIVE: His blood pressure is marginal 96 to 138 over 50 to 69. Temperature was a 100.7 degrees. He is at times diaphoretic. No distended neck veins. At times, he complains of being short of breath, has a little bit tachypneic. Abdomen is nondistended, nontender. Cardiovascular: Regular rhythm and rate without murmur or S3. His left foot is swollen and with fluctuance. Dr. Dangelo aspirated some fluctuant material that smelled anaerobic. Concerned about infection. DIAGNOSTIC STUDIES: CT of his chest showed severe right hemidiaphragm elevation, COPD, and very distended gallbladder. Recommended gallbladder ultrasound. ASSESSMENT AND PLAN: I am going to plan to move him to the unit. Dr. Peralta has been consulted. I think this foot is going to need to be debrided. We may need to do some vascular studies in that leg, so we will move him to the unit. We will continue to give him some fluids. He has a history of coronary artery disease status post coronary artery bypass grafting and diabetes. His sugars have been running a little low. We will continue to pattern sugars and sliding scale. Creatinine is 1.8, which is stable. I think he has some underlying chronic kidney disease. Albumin is 2.6. We will get Wound Care involved and Dr. Dangelo is involved and Dr. Peralta. cc: MD Nathen Hdz MD
[2019-02-12] MEDS ORDERED: DIPRIVAN 1% ONE (16:59)
[2019-02-12] MEDS ORDERED: CLINDAMYCIN 600 MG/D5W 600 MG/50 ML IVPB IV SCH (17:00)
[2019-02-12] MEDS ORDERED: TORADOL ONE (18:12)
[2019-02-12] MEDS ORDERED: ZOFRAN ONE (18:12)
[2019-02-12] MEDS ORDERED: OFIRMEV 1000 MG/ISOTONIC SOLN 1,000 MG/100 ML BOTTLE ONE (18:12)
--- NOTE | 2019-02-12 18:33 | INFECTIOUS DISEASE CONSULT REP ---
DATE: 02/12/2019 CONCLUSION: The patient is admitted the hospital. He has a very severely infected left foot. There definitely is an abscess present and also cellulitis, but I am concerned he could have necrotizing fasciitis or even gas gangrene. The patient also has a very distended gallbladder. RECOMMENDATIONS: I have started the patient on Zosyn and discussed the patient with Dr. Santoro. We agree to also add Zyvox and clindamycin. Dr. Bacilio Peralta has been consulted to see the patient as soon as possible. I have ordered an ultrasound of the abdomen, specifically to look at the gallbladder. The patient's laboratory tests thus far show a CBC with a white count of 25,380, hemoglobin 10.4, and platelet count 133,000. The patient's creatinine is 1.8. GFR is 37. Liver function studies are normal except for a bilirubin of 1.17. CT scan of the chest shows severe right hemidiaphragm elevation, chronic obstructive pulmonary disease, and a very distended gallbladder. The x-ray of the patient's foot shows soft tissue ulceration overlying the 1st MTP joint, but no definite sign of osteomyelitis. PAST MEDICAL HISTORY/REVIEW OF SYSTEMS: Eyes and ears: Patient has decreased hearing. Vision is okay. Neck: No stiffness. Respiratory: Patient for the past 6 to 8 weeks has been short of breath, especially dyspnea on exertion. Cardiac: The patient has not had any chest pain or palpitations. GI: The patient in the past week has had diarrhea. : No dysuria or flank pain. Bones, joints, muscles: See present illness. Neurologic: No seizures. No recent loss of motor or sensory function. PREVIOUS HOSPITALIZATIONS AND OPERATIONS: He has had coronary artery bypass grafting, carotid endarterectomy, and myocardial infarction. MEDICAL DISEASES: Positive for diabetes mellitus, hypertension, myocardial infarction, coronary artery disease, carotid artery disease, and obesity. INFECTIOUS DISEASE HISTORY: Negative for pneumonia and UTI. FAMILY HISTORY: Positive for diabetes mellitus, hypertension, and myocardial infarction. SOCIAL HISTORY: The patient is . He lives alone. He has a dog as a pet. He does not smoke cigarettes or abuse drugs. He rarely drinks alcohol. PHYSICAL EXAMINATION: Vital signs: Temperature is 101 degrees, pulse 80, respirations 24, blood pressure 110/60. The patient is 6 feet 1 inch tall and weighs 240 pounds. General: This is an ill-appearing, somewhat dyspneic-appearing, also elderly male. Head, eyes, ears, nose, and throat: He can hear my spoken words and see me near objects. He does not have any white patches on his tongue. Neck: No meningismus. Lungs: Clear to auscultation. Cardiovascular: Heart rate is regular. Abdomen: Soft, nontender. Extremities: The patient's left foot is swollen, fluctuant. He has a necrotic area on the dorsum of the foot. I cleaned the foot with alcohol swabs and then stuck a needle in and a sanguinous, purulent, very foul smelling fluid came out. Neurologic: The patient is slightly lethargic. He can move his extremities. There is no tremor. His memory as regarding his medical history seemed to be intact. Integument: No rash noted. Thank you for the consult. cc: MD Nathen Shi MD MTDD
--- NOTE | 2019-02-12 19:05 | GENERAL SURGERY CONSULTATION ---
DATE: 02/12/2019 HISTORY OF PRESENT ILLNESS: This is a 73-year-old gentleman, with diabetes marginally controlled, who has had history of diabetic foot ulcers. He developed increased pain, swelling and erythema of his left foot over the last 24 hours. He was admitted. He was found to have fluctuance, erythema, leukocytosis, fevers, and I was consulted for further management. MEDICAL HISTORY: 1. Coronary disease. 2. Diabetes. 3. Actually, he has a history of sudden cardiac . 4. He had some ischemic cardiomyopathy that is improved. SURGICAL HISTORY: He has had coronary bypass x4 in 2017. He has got a carotid endarterectomy 2017, shoulder surgery, history of foot ulcers. SOCIAL HISTORY: He is retired, . 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 History of tobacco, but none currently. FAMILY HISTORY: Reviewed and noncontributory. REVIEW OF SYSTEMS: Ten-point negative. MEDICATIONS: He takes insulin, aspirin, and digoxin, but no other anticoagulants. PHYSICAL EXAMINATION: Vital Signs: 99.6 degrees. His temp has been as high as 100.2, pulse 81, blood pressure 104/55, oxygen saturation 96%. General: He is alert, in no acute distress. HEENT: No scleral icterus. No cervical mass. Cardiovascular: Normal rate. Pulmonary: No increased work of breathing. Abdomen: Soft, mildly distended. Integument: Warm and dry. Psychiatric: Appropriate affect. Neurologic: Pain in his left foot, but otherwise no gross deficits. Peripheral vascular: His feet are warm. Musculoskeletal: There is a erythema, discoloration with central ulcer dorsal aspect of the foot with purulent drainage, fluctuance, but no crepitus. The toes were adequately perfused at this juncture. There was also a right 1st plantar metatarsal noted ulcer. LABORATORY DATA: White count 25, hematocrit 31. INR is 1.18. Creatinine is 1.5. Glucose has fluctuated. His hemoglobin A1c is 9. Troponins are negative. Urinalysis shows moderate blood. IMAGES: I reviewed plain film x-rays of his foot that shows soft tissue air, but no dislocation, bony abnormality or foreign body. ASSESSMENT AND PLAN: This is a 73-year-old gentleman with severe infection of left foot, poorly- controlled diabetes, cardiac history. I have discussed risks of bleeding, infection, progressive and serial operations including amputation, which might be the case tonight. He understands and consents to incision and drainage of left foot infection and debridement with drain placement and possible amputation. He understands and consents. He is on antibiotics. Her family is here with him. cc: MD Nathen Finch MD
[2019-02-12 20:18] LABS: ALLEN TEST YES; BE 1.6 mmoll (-3.0-3.0); BLOOD TYPE ARTERIAL; HCO3-(ACT) 26.2 mmoll (20.0-26.0); METHB 1.1 % (0.0-1.5); O2(CT) 13.8 mL/dL (15.0-23.0); O2HB 96.4 % (95.0-99.0); PCO2(98.6) 38 mmHg (35-45); PO2(98.6) 99 mmHg (60-100); SAMPLE BLOOD; SAO2 99.6 % (95.0-100.0); THB 10.1 g/dL (11.5-17.4); pH(98.6) 7.44 (7.35-7.45)
[2019-02-12 20:21] LABS: MODALITY CANNULA
--- NOTE | 2019-02-12 22:48 | OPERATIVE NOTE ---
PROCEDURE DATE: 02/12/2019 PREOPERATIVE DIAGNOSIS: Diabetic foot infection, left. POSTOPERATIVE DIAGNOSIS: Diabetic foot infection, left. PROCEDURE PERFORMED: 1. Incision and drainage of left foot abscess with placement of Ainsley drain. 2. Excisional debridement of 7 x 9 cm wound down to the tendon and muscle. INDICATION: A gentleman with diabetes, worsening erythema and swelling of the left foot with purulent drainage consistent with abscess. No bony changes noted on x-ray. OPERATIVE FINDINGS: There was an abscess on the dorsal aspect of his foot extending down to the first and 2nd metatarsal space where there was a small ulcer noted. This extended down to the tendons, but there is no progressive necrosis noted other than some skin. OPERATIVE NOTE: Risks, benefits and alternatives were discussed. The patient consented to the procedure. Seen preoperatively. Surgical site was confirmed and marked. He was taken operating room placed supine position. General anesthesia induced. All bony prominences were padded. His foot was prepped with Betadine and draped in the usual fashion. After time-out, we incised the area of fluctuance and expressed a large amount of pus. Cultures were obtained. We debrided the necrotic skin and disrupted loculations. The purulence was draining from the depths of his foot and communicated with an ulcer on the bottom. We tunneled a [place] drain through this and secured it. We then irrigated the wound with Vashe. After noting viable tissue circumferentially, we packed it with Vashe gauze. Hemostasis noted. A Kerlix dressing was applied. He tolerated it well. No complications. cc: MD Nathen Finch MD
--- NOTE | 2019-02-13 00:55 | ECHO REPORT ---
ORDER DATE: 02/12/2019 MEASUREMENTS: Septal thickness 0.9, left ventricular internal diameter in diastole 5.7, posterior wall thickness 0.9. Aortic root 3.3, left atrium 5.0 SUMMARY: 1. Technically difficult study due to limited acoustic window quality. Intravenous echo contrast agent Optison was utilized to enhance endocardial definition. 2. Aortic valve is trileaflet and demonstrates very mild sclerotic change with adequate opening on 2-dimensional images. Peak gradient across aortic valve is less than 10 mmHg. Mild mitral annular calcification is demonstrated. There is mild mitral regurgitation. Tricuspid valve without evidence of structural abnormality, while pulmonic valve is not well demonstrated. There is mild tricuspid regurgitation. The estimated systolic PA pressure by Doppler is 40 mmHg, suggesting mild pulmonary hypertension. Aortic root is normal size. 3. Borderline left ventricular enlargement with normal wall thickness demonstrated. Estimated left ejection fraction approximately 35%. Hypokinesis of the apical septum, very apex of the left ventricle, and basal to mid inferior wall demonstrated. Left atrium is moderately enlarged. Right atrium and right ventricle are grossly normal in size with grossly preserved right ventricular systolic function. 4. No pericardial effusion. 5. Inferior vena cava not well demonstrated. cc: MD Tania De Anda PA Russell T. Barr, MD
[2019-02-13] MEDS: ZOSYN 3.375 GM in NS 50 ML IV SCH (03:02)
[2019-02-13] MEDS: MORPHINE IV PRN ×3 (03:03→21:50)
[2019-02-13 06:48] LABS: CALCIUM 7.3 mg/dL (8.8-10.2); CREATININE 2.3 mg/dL (0.7-1.2); MAGNESIUM 2.7 mg/dL (1.5-2.7); POTASSIUM 3.2 mmol/L (3.5-5.1)
[2019-02-13] MEDS ORDERED: ZOSYN 2.275 GM in NS 50 ML IV SCH (08:24)
--- NOTE | 2019-02-13 08:33 | Diag Imaging Result Doc PS360 ---
EXAM: US ABDOMEN-COMPLETE INDICATION: distended gallbladder COMPARISON: 01/04/2017 FINDINGS: The gallbladder is very distended and there is layering echogenic sludge in the gallbladder lumen. No shadowing stones are identified and no gallbladder wall thickening is appreciated. The common bile duct is normal in diameter. Sonographic Olmedo's sign was reported to be negative. The liver is grossly unremarkable. Portal venous flow is hepatopetal. The pancreas is obscured by gas. The proximal and mid aorta are also obscured. The distal aorta and IVC are grossly unremarkable. The spleen is unremarkable. The kidneys are grossly unremarkable. IMPRESSION: Distended gallbladder with echogenic sludge in the lumen. However, no common bile duct dilatation or wall thickening is appreciated. Electronically signed by Francis Hicks 02/13/2019 8:30 AM
[2019-02-13] MEDS: NS 1,000 ML IV SCH ×2 (08:46→22:21)
[2019-02-13] MEDS: ZYVOX PO SCH ×2 (08:46→21:45)
[2019-02-13] MEDS: PRILOSEC PO SCH (08:46)
[2019-02-13] MEDS: ASPIRIN PO SCH (08:46)
[2019-02-13] MEDS: COREG PO SCH ×2 (08:53→21:45)
[2019-02-13] MEDS: LANOXIN PO SCH (08:53)
[2019-02-13] MEDS: LANTUS INSULIN SUBQ SCH (08:53)
[2019-02-13] MEDS: GLUCOTROL PO SCH ×2 (08:53→21:37)
--- NOTE | 2019-02-13 09:32 | INFECTIOUS DISEASE PROGRESS NO ---
DATE: 02/13/2019 PRESENT ILLNESS: The patient is status post incision and drainage of a left foot abscess. Surgery was performed by Dr. Peralta. It does not appear that any bone was involved in the infection. MEDICATIONS: The patient is on Zosyn. PHYSICAL EXAMINATION: Vital Signs: Earlier temperature is 101 degrees, now it is 98 degrees, pulse 61, respirations 18, blood pressure 101/53. General: This is a somewhat ill-appearing elderly male. He is in no acute distress. Head, eyes, ears, nose, and throat: He can hear my spoken words and see near objects. He does not have any white patches on his tongue. Neck: No meningismus. Lungs: Clear to auscultation. Cardiovascular: Heart rate is regular. Abdomen: Soft and nontender. Extremities: I removed the dressing from the patient's left foot. It is much less swollen than it was yesterday. There is a large dorsal wound that is bleeding. It does have beefy red tissue. I did not see any necrosis nor did I see any devitalized tissue either on the foot. Neurologic: Patient is alert. He has decreased sensation in his feet. He can move his legs. LAB AND X-RAY: There is no new radiographic study today. The creatinine is 2.3. GFR is 28. There is no CBC for today. A Gram stain from the wound shows gram-positive cocci. The cultures are pending. ASSESSMENT AND PLAN: Patient has a drained abscess of the patient's left foot. There appears to be no bone involvement. I plan on continuing Zosyn but I have decreased the dose because of the patient's deteriorating kidney function. I have also started p.o. Zyvox 600 mg every 12 hours. COMORBIDITIES: The patient is elderly. He is a diabetic. He has peripheral vascular disease and the patient also is obese. cc: MD Nathen Shi MD
[2019-02-13] MEDS: ZOSYN 2.25 GM in NS 50 ML IV SCH ×3 (11:20→23:46)
[2019-02-13] MEDS ORDERED: KLOR-CON PO ONE (12:07)
--- NOTE | 2019-02-13 12:30 | PROGRESS NOTE ---
DATE: 02/13/2019 SUBJECTIVE: Mr. Munoz is feeling a little better. They did debridement with Dr. Peralta and it did not look like the infection extended to the bone. It looks like the granulation tissue underneath where he debrided. OBJECTIVE: He remains afebrile, temperature 96.9 degrees, pulse 70, respirations 14, blood pressure 111/56. Pupils are equal and round. Lungs are clear in all lung delarosa. Cardiovascular regular rhythm and rate without murmur or S3. Abdomen is soft. Skin is warm and dry. Urine output is 500 mL. ASSESSMENT AND PLAN: 1. Status post incision and drainage of left foot abscess per Dr. Peralta. It does not appear that the bone was involved. The patient is on Zosyn. Cultures are pending. 2. Ultrasound did show distended gallbladder, echogenic sludge in the lumen, however, no common bile duct dilatation or wall thickening appreciated. 3. History of severe coronary artery disease. Previous coronary bypass surgery. 4. History of systolic heart failure due to ischemic cardiomyopathy. This had resolved per nuclear stress test in October of 2014. 5. He had some hypokalemia supplement. 6. He is having some diarrhea, question of possible C. Difficile so stool sent for culture. 7. Acute renal failure. His creatinine is 2.3. On presentation, it was 1.7. Continue to watch his renal function carefully. ProBNP was 5672. Blood sugars have been running a little bit low so may back down on his insulin or Lantus to 10 units daily instead of 20. cc: MD Nathen Hdz MD
[2019-02-13] MEDS ORDERED: BLISTEX MEDICATED BERRY LIP BALM TOP PRN (15:18)
--- NOTE | 2019-02-13 20:21 | GENERAL SURGERY PROGRESS NOTE ---
DATE: 02/13/2019 SUBJECTIVE: No issues overnight. No further fevers documented. No tachycardia. OBJECTIVE: Vital Signs: Blood pressures have been systolics in the low 100s. Oxygen saturation high 90s on 3 L. General: He is alert. Extremities: His left foot dressing is recently changed, is clean. His toes are well perfused. There is no cellulitis extending up his foot. LABORATORY: No new labs this morning other than a creatinine of 2.3. Glucose was low overnight, but better this morning. Wound cultures are still pending. ASSESSMENT AND PLAN: This is a 73-year-old gentleman with diabetic foot infection. It has been drained and debrided and drain was placed. We will continue antibiotics per Dr. Dangelo, and local wound care with Vashe dressings twice a day. I talked to Saranya, our wound nurse. cc: MD Nathen Finch MD
[2019-02-13] MEDS: LIPITOR PO SCH (21:45)
[2019-02-13] MEDS: LOVENOX SUBQ SCH (23:46)
[2019-02-14] MEDS: ZOSYN 2.25 GM in NS 50 ML IV SCH (05:39)
[2019-02-14 06:33] LABS: BASO# 0.02 X1000 (0.0-0.2); BASO% 0.1 % (0.0-0.8); EOS# 0.09 X1000 (0.0-0.7); EOS% 0.5 % (0.0-10.0); HEMATOCRIT 29.6 % (42.0-52.0); HEMOGLOBIN 9.9 g/dL (14.0-18.0); IMM GRAN# 0.08 X1000 (0.0-0.04); IMM GRAN% 0.4 % (0.0-0.5); LYMPH% 4.2 % (20.5-51.1); MCH 28.8 PG (27-31); MCHC 33.4 g/dL (33-37); MONO# 1.07 X1000 (0.11-0.59); MONO% 5.7 % (1.7-9.3); MPV 11.8 FL (7.4-10.4); NEUT# 16.81 X1000 (1.4-6.5); NEUT% 89.1 % (42.2-75.2); PLT 192 X1000 (130-400); RBC 3.44 XMIL (4.7-6.1); RDW 14.2 % (11.5-14.5); WBC 18.87 X1000 (4.8-10.8)
[2019-02-14 06:57] LABS: POTASSIUM 3.9 mmol/L (3.5-5.1)
[2019-02-14 06:58] LABS: CALCIUM 7.6 mg/dL (8.8-10.2); CREATININE 2.2 mg/dL (0.7-1.2)
--- NOTE | 2019-02-14 08:27 | CARDIOLOGY PROGRESS NOTE ---
DATE: 02/14/2019 CHIEF COMPLAINT: Tachycardia, shortness of breath, pain in the foot, toxic state. SUBJECTIVE: Mr. Munoz underwent incision and drainage of a left foot abscess with placement of a Ainsley drain on 02/[address] Peralta. He is less toxic today. He is more clear-minded. He is not having any chest pain. Breathing seems to be more comfortable. OBJECTIVE: Vital signs: His blood pressure 108/70, temperature 98.6, pulse 83, respirations 16. General: He is awake. He is not toxic like he was 2 days ago. HEENT: Unremarkable. Chest: Shows diminished breath sounds, no definite rales. A chest CT that we did on 02/12 showed severe right hemidiaphragmatic elevation, COPD, no evidence of pulmonary congestion. His ProBNP was 5672 probably related to his acute renal failure. Heart: Sounds are regular and rhythm. I do not hear gallop or murmur. He does have some extrasystoles. Abdomen: Slightly prominent, nontender. Extremities: Showed decreased pulses. His left foot is covered. Neurological exam: He is more awake, follows commands. BLOOD WORK: His white cell count has dropped to 18,870. His sodium is 129, potassium 3.9, BUN 65, creatinine 2.2. Creatinine is a little better than yesterday, BUN is also a little better than yesterday. IMPRESSION: 1. Patient who presented essentially septic, toxic state, secondary to left foot abscess, that has been drained 48 hours ago. He is a little better today. 2. History of ischemic cardiomyopathy status post coronary artery bypass surgery. That appears to be stable. This patient has no indication of any real change in cardiac status. 3. Chronic obstructive pulmonary disease. 4. Distended gallbladder, reason for that is unclear. That is an incidental finding on the CT scan of the chest. 5. Diabetes mellitus type 2, which is not optimally controlled. Hemoglobin A1c on admission is 9%. 6. Acute renal failure probably secondary to sepsis, low cardiac output. 7. Hyponatremia. Multifactorial. RECOMMENDATIONS: At this point in time, the patient really needs to be treated extensively with antibiotics and surgical debridement to eliminate the source of infection. Cardiac-julio, there has been no change in this patient's status. His echocardiogram, which was suboptimal, indicated that his ejection fraction may be in the order of 35%. Given the fact that he is tachycardic and the echocardiographic study was suboptimal, I would not make or pass any judgment on the significance of this ejection fraction. This may have to be reassessed before the patient is discharged. Last time I checked his EF following his CABG, and after optimizing his medical therapy, it had come up very close to 50%. At this time, we are not going to be manipulating any cardiac medications. I will let the Primary team deal with infection and I will be available if there is any specific question regarding his cardiac management. At this time, I am going to sign off. cc: MD Nathen Vargas MD [email or web address]
--- NOTE | 2019-02-14 09:00 | INFECTIOUS DISEASE PROGRESS NO ---
DATE: 02/14/2019 PRESENT ILLNESS: The patient is status post incision and drainage of a left foot abscess. There appeared to be no involvement of bone. MEDICATIONS: The patient is in day 2 of treatment with a combination of Zyvox and Zosyn. PHYSICAL EXAMINATION: Vital Signs: Temperature is 98.6 degrees, pulse 83, respirations 16, blood pressure 108/70. General: This is an ill-appearing elderly male. He is in no acute distress. Head, eyes, ears, nose, and throat: The patient has a dark discoloration to his tongue this morning; he told me that he had just finished drinking grape juice. He does not have any pain in his tongue. He can hear my spoken words and see near objects. Lungs: Clear to auscultation. Cardiovascular: Heart rate is for the most part regular. There are occasional premature beats. Abdomen: Soft and nontender. Extremities: The patient's left foot dressing is intact. The patient's right foot has a plantar ulcer that is closing well. Neurologic: Patient is awake. He can move his extremities. There is no tremor. LAB AND X-RAY: CBC today shows a white count of 18,870, hemoglobin 9.9, and platelet count 192,000. Creatinine is 2.2. GFR is 30. The patient's Gram stain from the tissues at surgery showed gram-positive cocci. Cultures from surgery are growing gram negative rods. ASSESSMENT AND PLAN: Patient has a drained abscess of the patient's left foot. My plan is to continue Zyvox and Zosyn except I have changed Zyvox from IV to PO. COMORBIDITIES: The patient's comorbidities: He is elderly. He has diabetes mellitus as well as peripheral vascular disease. He also is obese. cc: MD Nathen Shi MD [facility]
--- NOTE | 2019-02-14 09:11 | PROGRESS NOTE ---
DATE: 02/14/2019 SUBJECTIVE: Mr. Munoz is feeling better than yesterday. OBJECTIVE: Vital signs: He remains afebrile, temperature 98.2 degrees this morning, pulse 82, respirations 20, blood pressure 121/65. HEENT: Pupils are equal and round. Lungs: Clear in all lung delarosa. Cardiovascular: Regular rhythm and rate without murmur or S3. Abdomen: Soft. Skin: Warm and dry. Genitourinary: Urine output is over 2000 mL. ASSESSMENT AND PLAN: 1. Echocardiogram. He has no left ventricular dysfunction. Good performance. 2. History of ischemic cardiomyopathy, status post coronary artery bypass surgery. Normal left ventricular function at this time. 3. Chronic obstructive pulmonary disease. 4. Distended gallbladder, and ultrasound just shows some sludge. 5. Diabetes mellitus type 2. Continue to pattern sugars. 6. Hyponatremia which appears resolved. 7. Leukocytosis from infection. 8. Infected left foot status post debridement. Continue broad-spectrum antibiotics. LABORATORY DATA: From this morning, sodium 129, potassium 3.9, chloride is 22, BUN 65, creatinine 2.2, so he does have some acute renal insufficiency and maybe a little bit of acute tubular necrosis. Hopefully this will improve. REVIEW OF ORDERS: He is on aspirin 325 mg a day, Lipitor 40 mg at bedtime, Coreg 6.25 mg b.i.d., Lanoxin 125 mcg p.o. q.a.m., Glucotrol 5 mg b.i.d., insulin glargine or Lantus decreased down to 10 units subcutaneous q.a.m., Zyvox 600 mg p.o. q.12, normal saline at 82 mL an hour, Prilosec 40 mg a day, Zosyn 2.25 g IV q.6. Waiting on cultures. Preliminary wound cultures gram-negative caryl. Waiting on ID. cc: MD Nathen Hdz MD
[2019-02-14] MEDS: COREG PO SCH ×2 (09:19→21:06)
[2019-02-14] MEDS: PRILOSEC PO SCH (09:19)
[2019-02-14] MEDS: GLUCOTROL PO SCH ×2 (09:20→21:04)
[2019-02-14] MEDS: LANOXIN PO SCH (09:20)
[2019-02-14] MEDS: ASPIRIN PO SCH (09:20)
[2019-02-14] MEDS ORDERED: ZOSYN 3.375 GM in NS 50 ML IV SCH (09:20)
[2019-02-14] MEDS: ZYVOX PO SCH ×2 (09:40→21:04)
[2019-02-14] MEDS: ZOSYN 3.375 GM in NS 50 ML IV SCH ×3 (09:41→21:03)
[2019-02-14] MEDS: LANTUS INSULIN SUBQ SCH (09:55)
[2019-02-14] MEDS: NS 1,000 ML IV SCH (10:36)
--- NOTE | 2019-02-14 20:47 | GENERAL SURGERY PROGRESS NOTE ---
DATE: 02/14/2019 SUBJECTIVE: Doing well. Hemodynamically stable. No fevers overnight. Dressing change is going well. OBJECTIVE: The wound is clean. Toes are perfused. Pulse 70s, blood pressure 122/76, oxygen saturation 97% on 3 L. Generally he is alert. Cardiovascular: Normal rate. Left foot: Toes are perfused. No cellulitis extending up. His dressing is clean, with no gross purulence. LABORATORY DATA: Wound cultures are growing out gram-negatives, multiple, and gram-positives. Labs: White count is down to 18, hematocrit is 29. Creatinine is 2.2, glucose 120s to 140s. ASSESSMENT AND PLAN: A 73-year-old gentleman with diabetic foot infection. We will follow up his cultures. We will keep him on antibiotics and dressing changes twice daily. [*]is following him for the weekend. cc: MD Nathen Finch MD
[2019-02-14] MEDS: LIPITOR PO SCH (21:04)
[2019-02-14] MEDS: LOVENOX SUBQ SCH (23:04)
[2019-02-15] MEDS: NS 1,000 ML IV SCH ×2 (02:13→15:52)
[2019-02-15] MEDS: ZOSYN 3.375 GM in NS 50 ML IV SCH ×4 (03:24→21:19)
[2019-02-15] MEDS: MORPHINE IV PRN ×2 (05:08→10:51)
--- NOTE | 2019-02-15 08:25 | PROGRESS NOTE ---
DATE: 02/15/2019 SUBJECTIVE: Mr. Munoz had a pretty good night. He has had loose stool though and he wants to get some Imodium. He is still on a liquid diet. I am going to advance him to a diabetic diet. OBJECTIVE: Vital signs: He has remained afebrile, temperature 97.5 degrees, pulse 89, respirations 20, blood pressure 150/60. HEENT: Pupils are equal round. Lungs: Clear in all lung delarosa. Cardiovascular: Regular rhythm and rate without murmur or S3. Abdomen: Soft. Skin: Warm and dry. Genitourinary: Urine output was 1200 mL. LABORATORY DATA: Blood sugars 117, 175, 166. We will send stool for Clostridium difficile. His foot cultures, wound cultures grew out E coli, Proteus mirabilis, Enterococcus faecalis group D and I do not see any extended spectrum beta lactamase on the E coli. ASSESSMENT: 1. Echocardiogram shows normal left ventricular function. He has a history of coronary artery disease status post triple bypass. 2. History of ischemic cardiomyopathy, which is improved. Left ventricular function is normal. 3. Chronic obstructive pulmonary disease. No trouble with air or gas exchange. 4. Aware of a distended gallbladder. Ultrasound showed some sludge. 5. Diabetes mellitus type 2. Sugars well controlled. 6. Hyponatremia which is resolved. 7. Leukocytosis from infection that is improved. 8. Left foot status post debridement. Encouraged that it does not appear to be down to the bone, so keep on present antibiotics. PLAN: We will advance his diet to a diabetic diet. He has some loose stools. Going to send stool off for Clostridium difficile. Note his white count has still been elevated but it seems to be coming down, and we will give him Imodium and I am going to start him on Questran Light 1 scoop twice a day. He said he has been having diarrhea even before his foot infection. cc: MD Nathen Hdz MD
[2019-02-15] MEDS: QUESTRAN LIGHT PO SCH ×2 (09:50→21:19)
[2019-02-15] MEDS: IMODIUM LIQUID PO PRN ×2 (09:51→17:39)
[2019-02-15] MEDS: ASPIRIN PO SCH (09:53)
[2019-02-15] MEDS: ZYVOX PO SCH ×2 (09:53→21:20)
[2019-02-15] MEDS: PRILOSEC PO SCH (09:53)
[2019-02-15] MEDS: COREG PO SCH ×2 (09:53→21:20)
[2019-02-15] MEDS: GLUCOTROL PO SCH ×2 (09:54→21:20)
[2019-02-15] MEDS: LANOXIN PO SCH (09:54)
[2019-02-15] MEDS: LANTUS INSULIN SUBQ SCH (09:54)
--- NOTE | 2019-02-15 12:19 | PROGRESS NOTE ---
DATE: 02/15/2019 SUBJECTIVE: Mr. Jayson Munoz has bilateral foot ulcers and infection involving his left foot. He is a diabetic. He has been admitted for surgical debridement of mostly his left foot and IV antibiotics per Dr. Peralta. He is awake and cooperative. He is tolerating a diet. OBJECTIVE: His heart rate is 89, blood pressure 150/60, O2 saturation 100%. He is afebrile. DIAGNOSTIC STUDIES: His sugars have been fairly well controlled, from 117 to 166. ASSESSMENT AND PLAN: We will continue wound care and IV antibiotics. cc: MD Nathen Tavera MD
[2019-02-15] MEDS: LIPITOR PO SCH (21:19)
[2019-02-15] MEDS: LOVENOX SUBQ SCH (23:07)
[2019-02-16] MEDS: ZOSYN 3.375 GM in NS 50 ML IV SCH ×4 (03:35→21:07)
[2019-02-16] MEDS: NS 1,000 ML IV SCH ×2 (04:14→16:09)
--- NOTE | 2019-02-16 08:33 | PROGRESS NOTE ---
DATE: 02/16/2019 SUBJECTIVE: Mr. Munoz is feeling better. He is just uncomfortable laying in bed in three positions but his abdomen, he says, is a little better. He has not had explosive diarrhea. OBJECTIVE: Temperature 98.0 degrees, pulse 82, respirations 18, blood pressure 130/67. Pupils are equal and round. Lungs are clear in all lung delarosa. Cardiovascular Examination: Regular rhythm and rate without murmur or S3. Abdomen is soft. Skin is warm and dry. Urine output was 1700 mL. ASSESSMENT AND PLAN: 1. Left foot status post debridement. I think planning more surgery next week per Dr. Peralta. Doing well. Continue present antibiotics. 2. Ischemic cardiomyopathy, which seems to have resolved. Has normal left ventricular function. Has underlying coronary artery disease. 3. Chronic obstructive pulmonary disease. No trouble with breathing. 4. We did recognize a distended gallbladder. Ultrasound showed a little bit of sludge in the gallbladder. Aware. 5. Diabetes mellitus type 2. Sugar is under good control. 6. Electrolytes and kidney function look good. Thought white count did come down to 18,000, I will probably check it again tomorrow. Chemistries, we will check again in the morning. Continue present orders. cc: MD Nathen Hdz MD
[2019-02-16] MEDS: COREG PO SCH ×2 (08:48→21:07)
[2019-02-16] MEDS: LANTUS INSULIN SUBQ SCH (08:48)
[2019-02-16] MEDS: ASPIRIN PO SCH (08:48)
[2019-02-16] MEDS: ZYVOX PO SCH (08:48)
[2019-02-16] MEDS: GLUCOTROL PO SCH ×2 (08:48→21:07)
[2019-02-16] MEDS: LANOXIN PO SCH (08:48)
[2019-02-16] MEDS: QUESTRAN LIGHT PO SCH ×2 (08:49→21:07)
[2019-02-16] MEDS: PRILOSEC PO SCH (08:49)
--- NOTE | 2019-02-16 08:54 | PROGRESS NOTE ---
DATE: 02/16/2019 SUBJECTIVE: Mr. Jayson Munoz remains hospitalized for IV antibiotics and wound care involving his feet. His heart rate is 82, blood pressure 130/67, O2 saturation 99%. He is afebrile. He is receiving IV Zosyn and linezolid. His sugar is below 200. PLAN: Will continue IV antibiotics and wound care. Any surgical debridement per Dr. Peralta. cc: MD Nathen Tavera MD
[2019-02-16] MEDS: MORPHINE IV PRN (10:53)
[2019-02-16] MEDS: TYLENOL PO PRN (19:00)
[2019-02-16] MEDS: IMODIUM LIQUID PO PRN (21:03)
[2019-02-16] MEDS: LIPITOR PO SCH (21:07)
[2019-02-16] MEDS: LOVENOX SUBQ SCH (23:28)
[2019-02-17] MEDS: ZOSYN 3.375 GM in NS 50 ML IV SCH ×5 (03:34→21:54)
[2019-02-17 07:09] LABS: BASO# 0.01 X1000 (0.0-0.2); BASO% 0.1 % (0.0-0.8); EOS# 0.18 X1000 (0.0-0.7); EOS% 1.4 % (0.0-10.0); HEMATOCRIT 33.3 % (42.0-52.0); HEMOGLOBIN 10.6 g/dL (14.0-18.0); IMM GRAN# 0.05 X1000 (0.0-0.04); IMM GRAN% 0.4 % (0.0-0.5); LYMPH% 5.6 % (20.5-51.1); MCH 28.7 PG (27-31); MCHC 31.8 g/dL (33-37); MCV 90.2 FL (81-99); MONO# 0.86 X1000 (0.11-0.59); MONO% 6.9 % (1.7-9.3); NEUT# 10.71 X1000 (1.4-6.5); NEUT% 85.6 % (42.2-75.2); PLT 315 X1000 (130-400); RBC 3.69 XMIL (4.7-6.1); RDW 14.2 % (11.5-14.5); WBC 12.51 X1000 (4.8-10.8)
[2019-02-17 07:15] LABS: EOS 1 % (1-10); LYMPHS 9 % (21-51); MONO 7 % (1-9); SEGS 83 % (42-75)
[2019-02-17 07:23] LABS: AGAP 7; BUN 29 mg/dL (8-22); CHLORIDE 104 mmol/L (98-107); COSMO 276; CREATININE 1.1 mg/dL (0.7-1.2); ESTIMATED GFR > 60; GLUCOSE 92 mg/dL (70-104); MAGNESIUM 2.5 mg/dL (1.5-2.7); POTASSIUM 4.5 mmol/L (3.5-5.1); SODIUM 135 mmol/L (136-145); TCO2 24 mmol/L (25-35)
[2019-02-17] MEDS: MORPHINE IV PRN ×2 (07:30→13:02)
[2019-02-17] MEDS: LANOXIN PO SCH (08:21)
[2019-02-17] MEDS: GLUCOTROL PO SCH (08:21)
[2019-02-17] MEDS: COREG PO SCH ×2 (08:23→21:54)
[2019-02-17] MEDS: LANTUS INSULIN SUBQ SCH ×2 (08:23→18:17)
[2019-02-17] MEDS: QUESTRAN LIGHT PO SCH ×2 (08:23→21:54)
[2019-02-17] MEDS: PRILOSEC PO SCH (08:23)
[2019-02-17] MEDS: ASPIRIN PO SCH (08:23)
--- NOTE | 2019-02-17 09:35 | PROGRESS NOTE ---
DATE: 02/17/2019 SUBJECTIVE: He states that overall, he is feeling a little better. He said he did have some diarrhea during the night. He has remained afebrile. OBJECTIVE: Temperature was 99.4 degrees yesterday, pulse 89, respirations 18, blood pressure 134/52. Lungs are clear anterolateral. No distended neck veins. Abdomen is soft, nondistended, nontender. Both feet with bandages and the bandages appear dry. Skin is warm and dry. Urine output 2000 mL. ASSESSMENT AND PLAN: 1. Left foot status post debridement. I suspect he will need more surgery and a skin graft. Dr. Peralta is following. 2. Ischemic cardiomyopathy. His left ventricular function has actually improved. He has normal left ventricular function. He does have underlying coronary artery disease, status post coronary artery bypass graft. 3. Chronic obstructive pulmonary disease. No trouble with air or gas exchange. 4. Aware of recognized distended gallbladder on CT scan, does not appear to be causing him problems at this time. 5. Diabetes mellitus type 2. Continue to follow sugars. Appear under good control. 6. CBC this morning, white count 12,510, hematocrit 33, platelet count 315,000. Electrolytes: Sodium 135, potassium 4.5, chloride 104, BUN 29, creatinine 1.1. Blood sugar 107, 79, 92, and 63, so they are still running a little bit on the low side. I am going to stop his glipizide. cc: MD Nathen Hdz MD
[2019-02-17] MEDS: NS 1,000 ML IV SCH ×2 (13:02→18:03)
--- NOTE | 2019-02-17 17:20 | INFECTIOUS DISEASE PROGRESS NO ---
DATE: 02/17/2019 PRESENT ILLNESS: The patient is in postoperative day 5 from having his left foot abscess undergo incision and drainage performed by Dr. Peralta. MEDICATIONS: The patient was receiving Zosyn and Zyvox and when I got back the patient's microbiology findings, I discontinued the Zyvox and the patient now is receiving Zosyn as a single agent. PHYSICAL EXAMINATION: Vital Signs: Temperature is 97.9 degrees, pulse 108, respirations 19, blood pressure 176/75. General: This is an ill-appearing elderly male. He is in no acute distress. He is slightly lethargic today, but he can carry on a conversation. Head/eyes/ears/nose/throat: He can hear my spoken words and see near objects. He does not have any white coating on his tongue. Neck: He does not have any neck pain when he moves his head or neck. Lungs: Clear to auscultation. Cardiovascular: Heart rate is regular. Abdomen: Soft and nontender. Extremities: The patient has a left foot dressing which is intact. The patient's right foot plantar ulcer is closed. Neurologic: As mentioned above, the patient was lethargic, but I could get him to be fully awake and able to carry on a conversation. He can move his extremities. There is no tremor. LAB AND X-RAY: There is no new radiographic study. The CBC shows a white count of 12,510, hemoglobin 10.6, and platelet count 315,000. Creatinine is 1.1. GFR is greater than 60. Clostridium difficile toxin and antigen is negative. The culture from the patient's foot grew the following organisms. Bacteroides fragilis, Proteus, E coli and Enterococcus. ASSESSMENT AND PLAN: This is postop day 5 of incision and drainage of a left foot abscess. Dr. Peralta put in his op note that the infection did not extend to bone. My plan is to continue Zosyn. I asked the wound nurse if she would call me tomorrow when she changes the dressing so I can see the patient's wound. COMORBIDITIES: The patient is elderly. He also is a diabetic and he has peripheral vascular disease. He also is obese. cc: MD Nathen Shi MD
--- NOTE | 2019-02-17 20:13 | GENERAL SURGERY PROGRESS NOTE ---
DATE: 02/17/2019 SUBJECTIVE: Doing okay. No fevers documented. Occasional low-grade tachycardia. Blood pressure has been okay. OBJECTIVE: General: He is alert. Left Foot: There is some purulence tracking cephalad, but overall the wound seems clean. [place] in place. There is no necrosis. LABORATORY: White count 12, hematocrit 33, creatinine is 1.1. Glucose has been better controlled. Wound cultures are showing multiple organisms growing. ASSESSMENT AND PLAN: A 73-year-old gentleman with diabetic foot infection. Drained another pocket of pus that seems to communicate with this wound. I have asked the nurses to pack the dressing more cephalad during his dressing changes. Otherwise, we will keep his drain in place. Antibiotics. cc: MD Nathen Finch MD
[2019-02-17] MEDS: LOVENOX SUBQ SCH (21:54)
[2019-02-17] MEDS: LIPITOR PO SCH (21:54)
[2019-02-18] MEDS: LOVENOX SUBQ SCH ×2 (01:45→23:00)
[2019-02-18] MEDS: NS 1,000 ML IV SCH ×2 (05:04→17:57)
[2019-02-18] MEDS: ZOSYN 3.375 GM in NS 50 ML IV SCH ×4 (05:04→21:05)
[2019-02-18] MEDS: PRILOSEC PO SCH (09:32)
[2019-02-18] MEDS: ASPIRIN PO SCH (09:32)
[2019-02-18] MEDS: LANOXIN PO SCH (09:33)
[2019-02-18] MEDS: COREG PO SCH ×2 (09:33→21:05)
[2019-02-18] MEDS: QUESTRAN LIGHT PO SCH ×2 (09:34→21:05)
[2019-02-18] MEDS: LANTUS INSULIN SUBQ SCH ×2 (09:38→10:59)
--- NOTE | 2019-02-18 12:18 | GENERAL SURGERY PROGRESS NOTE ---
DATE: 02/18/2019 SUBJECTIVE: Doing well [*]okay. No fevers. No tachycardia. He does feel fatigued and weak. OBJECTIVE: blood pressure 143/74.General: He is alert. His foot dressings are clean. There is no drainage. [place] is in place. There is no necrosis of his toes. DIAGNOSTIC STUDIES: Glucose is 114. ASSESSMENT AND PLAN: This is a 73-year-old gentleman with diabetic foot infection of the left foot. It has been debrided. Continue with local dressing changes and antibiotics. This will be a complicated wound to heal. He does have exposed tendon, and he will need long-term antibiotics for this, but overall I think he is doing okay. cc: MD Nathen Finch MD
[2019-02-18] MEDS ORDERED: LASIX IV ONE (15:10)
--- NOTE | 2019-02-18 16:58 | PROGRESS NOTE ---
DATE: 02/18/2019 SUBJECTIVE: Mr. Munoz is feeling a little better. Stools are doing a little better. They are not as loose. Remains afebrile. Main complaint is tired of lying in the bed. OBJECTIVE: Temperature 98.5 degrees, pulse 96, respirations 19, blood pressure 166/73. Pupils are equal and round. Lungs are clear in all lung delarosa.Cardiovascular: Regular rhythm and rate without murmur or S3. URINE OUTPUT: 720 mL. ASSESSMENT AND PLAN: 1. Postoperative day 6 from left foot abscess incision and drainage per Dr. Peralta. He has a complicated wound to heal and does have an exposed tendon. Will need long-term antibiotics. Seems to be doing well. No evidence of osteomyelitis. 2. History of ischemic cardiomyopathy, which is improved, and the left ventricular function appears normal. He has history of cardiac arrest and emergency bypass surgery, and he has done real well from that standpoint. 3. Chronic obstructive pulmonary disease. Aware. No sign of trouble breathing or air/gas exchange issues. 4. We do note that they found a distended gallbladder on CT scan. Ultrasound showed a little sludge in the gallbladder. He does not seem to be symptomatic from this. 5. Diabetes mellitus, type 2. Sugar is under good control. 6. We will start physical therapy when we are able. REVIEW OF HIS ORDERS: He is on Lipitor 40 mg at bedtime, Coreg 6.25 mg b.i.d., Questran 4 g p.o. b.i.d., Lanoxin 125 mcg daily, he is on normal saline 82 mL an hour, Zosyn 3.375 g IV daily. DIAGNOSTIC STUDIES: On review of his microbiology, from his wound in the left foot, he has grown out Proteus mirabilis, E coli, Enterococcus faecalis, and Bacteroides fragilis. Most recent lab looks good. His white count has come down to 12,000 that was yesterday 12,510, hematocrit 33, platelet count 315,000. Blood sugars are in good control. We will check a basic metabolic profile and another CBC in the morning. cc: MD Nathen Hdz MD
[2019-02-18] MEDS: LIPITOR PO SCH (21:05)
[2019-02-18] MEDS: IMODIUM LIQUID PO PRN (21:32)
[2019-02-19] MEDS: MORPHINE IV PRN ×3 (00:10→18:44)
[2019-02-19] MEDS: ZOSYN 3.375 GM in NS 50 ML IV SCH ×5 (03:26→23:40)
[2019-02-19] MEDS: NS 1,000 ML IV SCH ×2 (05:33→18:15)
[2019-02-19] MEDS: QUESTRAN LIGHT PO SCH ×3 (08:13→20:28)
[2019-02-19] MEDS: LANOXIN PO SCH (08:14)
[2019-02-19] MEDS: PRILOSEC PO SCH (08:14)
[2019-02-19] MEDS: ASPIRIN PO SCH (08:14)
[2019-02-19] MEDS: COREG PO SCH ×2 (08:15→20:28)
[2019-02-19] MEDS: LANTUS INSULIN SUBQ SCH (08:20)
[2019-02-19 08:42] LABS: AGAP 8; BUN 23 mg/dL (8-22); CALCIUM 7.8 mg/dL (8.8-10.2); CHLORIDE 104 mmol/L (98-107); COSMO 286; ESTIMATED GFR > 60; GLUCOSE 212 mg/dL (70-104); MAGNESIUM 2.1 mg/dL (1.5-2.7); POTASSIUM 4.9 mmol/L (3.5-5.1); SODIUM 138 mmol/L (136-145); TCO2 26 mmol/L (25-35)
--- NOTE | 2019-02-19 12:49 | INFECTIOUS DISEASE PROGRESS NO ---
DATE: 02/19/2019 PRESENT ILLNESS: The patient is postop day 6 from having his left foot abscess incised and drained by Dr. Bacilio Peralta. MEDICATIONS: The patient is receiving Zosyn as a single agent. PHYSICAL EXAMINATION: Vital Signs: Temperature is 97.9 degrees, pulse 105, respirations 18, blood pressure 192/81. General: This is an ill-appearing, elderly male. He is in no acute distress. Head/eyes/ears/nose and throat: He can hear my spoken words and see near objects. He does not have any white patches in his mouth. Neck: No meningismus. Lungs: Clear to auscultation. Cardiovascular: Heart rate is regular. Abdomen: Soft and nontender. Extremities: The left foot dressing was removed. There is a large wound on the top side of the patient's foot. There is exposed tendon. There is beefy red tissue. There is no necrosis. There is no purulence, and there is no devitalized tissue. Neurologic: The patient is awake. He can move his extremities. There is no tremor. LAB AND X-RAY: There is no new radiographic study. The creatinine is 1. GFR is greater than 60. There is no further lab and no radiographic change. ASSESSMENT AND PLAN: This is day 6 postoperatively of incision and drainage of the patient's foot. I plan to continue with Zosyn for now, and I will discuss with Dr. Peralta when transition to oral antibiotics can be done. COMORBIDITIES: The patient is elderly and he is a diabetic. He also has peripheral vascular disease. cc: MD Nathen Shi MD MTDD
--- NOTE | 2019-02-19 14:23 | INFECTIOUS DISEASE PROGRESS NO ---
DATE: 02/19/2019 ADDENDUM: ASSESSMENT AND PLAN: I have discussed the patient's care with Dr. Santoro and Dr. Peralta. Our plan now is for the patient to go home today and continue his dressings at home that he has been doing in the hospital. I have electronically sent a prescription for Augmentin 875 mg p.o. every 12 hours for 2 weeks to the patient's pharmacy. I plan to see the patient back in the office in 2 weeks and the patient will have followup with Dr. Peralta as well. Dr. Peralta will be taking care of the local wound care. cc: MD Nathen Shi MD
--- NOTE | 2019-02-19 17:56 | PROGRESS NOTE ---
DATE: 02/19/2019 SUBJECTIVE: Mr. Munoz states he does feel better, but he does not feel he can go home. OBJECTIVE: Vital signs: He remains afebrile, pulse 92, respirations 18, blood pressure 175/73. HEENT: Pupils are equal and round. Lungs: Clear in all lung delarosa. Cardiovascular: Regular rhythm and rate without murmur or S3. Abdomen: Soft. Skin: Warm and dry. Urine output is 2000 mL. ASSESSMENT AND PLAN: 1. The patient does not feel he can go home today. We are going to switch him to Augmentin 875 mg p.o. q.12 for 2 weeks and continue his dressing changes, topical treatment. He is postoperative day 7 from a left foot abscess incision and drainage per Dr. Peralta. Complicated wound to heal. Does have exposed tendon. 2. Coronary artery disease status post cardiac arrest and coronary artery bypass graft. Normal left ventricular function. 3. Chronic obstructive pulmonary disease. No sign of air or gas exchange problems. 4. Did note he had a distended gallbladder. 5. Diabetes mellitus type 2. 6. General weakness. He has been on his back for a while. 7. Loose stools which we aware. REVIEW OF ORDERS: I do not see any change at this point. LABORATORY DATA: Review of his lab. White count has come down. Back on 02/17/2019 white count was 12,510. Hematocrit is 33, platelet count is 315,000. Electrolytes today, sodium 138, potassium 4.9, chloride 104, BUN 8, creatinine 1.0. Blood sugar is under good control. Continue present measures. cc: MD Nathen Hdz MD
--- NOTE | 2019-02-19 19:46 | GENERAL SURGERY PROGRESS NOTE ---
DATE: 02/19/2019 SUBJECTIVE: Dressing changes going well. No fevers. No tachycardia. OBJECTIVE: He is alert. His left toes are viable. [place] in place. Wound seems to be clean. Creatinine is 1.0. Glucose is in 200s. ASSESSMENT AND PLAN: A 73-year-old gentleman with diabetic foot infection status post debridement and drainage. We will continue antibiotics, defer to Dr. Dangelo. He thinks oral will be okay in the near future and with local wound care. Disposition pending physical therapy and rehab recommendations. cc: MD Nathen Finch MD
[2019-02-19] MEDS: LIPITOR PO SCH (20:28)
[2019-02-19] MEDS: LOVENOX SUBQ SCH (23:41)
[2019-02-20] MEDS: ZOSYN 3.375 GM in NS 50 ML IV SCH (04:15)
[2019-02-20] MEDS: NS 1,000 ML IV SCH ×2 (05:49→17:49)
--- NOTE | 2019-02-20 06:50 | GENERAL SURGERY PROGRESS NOTE ---
DATE: 02/20/2019 SUBJECTIVE: Patient seems to be doing well. OBJECTIVE: Vital Signs: Patient is currently afebrile. Vital signs stable. General: No acute distress. HEENT: Normocephalic, atraumatic. Pupils equal, round, reactive to light. Mucous membranes moist. Oropharynx benign. Neck: Supple. Trachea midline. Cardiovascular: Regular rate and rhythm. Lungs: Grossly clear. Abdomen: Soft, nontender, nondistended. Extremities: Moves all extremities. Neurologic: Grossly intact. Skin: Wound is grossly clear. Extremities: Wound to left foot with dressing intact. [place] intact. The toes appear viable. No active drainage. No purulence. No streaking erythema noted. Vascular: All extremities perfused. Neurologic: Grossly intact. Skin: Wound as noted above. ASSESSMENT AND PLAN: A 73-year-old gentleman with diabetic foot infection status post debridement. Foot infection. At this time, continue current regimen. Continue antibiotics. He has got multiple bacteria growing from the wound but appears to be relatively sensitive to his current antibiotic of Augmentin. Will defer for duration to Dr. Dangelo, but otherwise continue local wound care. Continue [place] until the patient is seen back by Dr. Peralta. cc: MD Nathen Webster MD
[2019-02-20] MEDS: IMODIUM LIQUID PO PRN (08:12)
[2019-02-20] MEDS: QUESTRAN LIGHT PO SCH ×2 (08:13→20:40)
[2019-02-20] MEDS: LANTUS INSULIN SUBQ SCH (08:13)
[2019-02-20] MEDS: AUGMENTIN PO SCH ×2 (08:13→20:40)
[2019-02-20] MEDS: COREG PO SCH ×2 (08:13→20:40)
[2019-02-20] MEDS: PRILOSEC PO SCH (08:13)
[2019-02-20] MEDS: ASPIRIN PO SCH (08:13)
[2019-02-20] MEDS: LANOXIN PO SCH (08:15)
--- NOTE | 2019-02-20 11:12 | PROGRESS NOTE ---
DATE: 02/20/2019 SUBJECTIVE: Feeling better. He had a better night. OBJECTIVE: Remains afebrile, temperature 99.2 degrees, pulse is 100, respirations 17, blood pressure 170/88. Pupils are equal and round. Lungs are clear in all lung delarosa. Cardiovascular Examination: Regular rhythm and rate without murmur or S3. Abdomen is soft. Skin is warm and dry. Urine output 218, 216, 211. ASSESSMENT/PLAN: 1. A 73-year-old gentleman with a diabetic foot infection, status post debridement. Seems to be doing well. Continue present antibiotics. Multiple bacteria growing from the wound but it seems to be sensitive to the current regimen of oral Augmentin. 2. Coronary artery disease, status post coronary artery bypass graft. Normal left ventricular function. 3. Chronic obstructive pulmonary disease. No sign of air or gas exchange problems. Breathing comfortably. 4. Does have a distended gallbladder. Aware. 5. Diabetes mellitus type 2. Sugar is under good control. 6. General weakness. Continue physical therapy. 7. Loose stools, which seem to be improving. REVIEW OF HIS ORDERS: I do not see any change. He may want to go to rehab but he is not ready to go home from his standpoint. cc: MD Nathen Hdz MD
--- NOTE | 2019-02-20 13:59 | INFECTIOUS DISEASE PROGRESS NO ---
DATE: 02/20/2019 PRESENT ILLNESS: The patient is postop day 7 from having his left foot extensively incised and drained by Dr. Bacilio Peralta. MEDICATIONS: Yesterday I discontinued Zosyn and placed the patient on Augmentin. Some of the side effects of the antibiotic, namely Augmentin, including a rash and diarrhea have been explained to the patient who agrees with treatment. PHYSICAL EXAMINATION: Vital Signs: Temperature is 99.2, pulse 101, respirations 17, and blood pressure 170/88. General: This is an ill-appearing elderly male. He is in no acute distress. Head, Eyes, Ears, Nose, and Throat: He can hear my spoken words and see near objects. He does not have any white coating of his tongue. Neck: He does not have any pain in his neck when he moves it or if he moves his head. Lungs: Clear to auscultation. Cardiovascular: Regular heart rate. Abdomen: Soft and nontender. Extremities: The patient's left foot has a large dressing around it. The dressing is intact. The right foot has a plantar ulcer which is resolving. There is a dressing over the foot also. Neurologic: The patient is alert. He can move his extremities. He has not done much in the way of walking. There is no tremor. LAB AND X-RAY: Creatinine is 1. GFR is greater than 60. There is no new radiographic study and no more new lab tests. ASSESSMENT AND PLAN: 1. This is the seventh postoperative day of surgery on the patient's foot. The patient is on Augmentin. 2. Comorbidities: The patient is elderly and a diabetic. He also has peripheral vascular disease. cc: MD Nathen Shi MD
[2019-02-20] MEDS: LIPITOR PO SCH (20:40)
[2019-02-21] MEDS: LOVENOX SUBQ SCH (01:37)
--- NOTE | 2019-02-21 05:42 | GENERAL SURGERY PROGRESS NOTE ---
DATE: 02/21/2019 SUBJECTIVE: Reviewed notes from other physicians. Reviewed nurses notes. He had his dressing changed early this morning by nursing staff. OBJECTIVE: Overall, wound looks okay. Patient is resting comfortably with dressing intact, with [place] still in place to the foot. ASSESSMENT AND PLAN: We will continue local wound care and continue management. cc: MD Nathen Webster MD
[2019-02-21 07:28] LABS: BASO# 0.03 X1000 (0.0-0.2); BASO% 0.2 % (0.0-0.8); EOS# 0.07 X1000 (0.0-0.7); EOS% 0.5 % (0.0-10.0); HEMOGLOBIN 10.4 g/dL (14.0-18.0); IMM GRAN# 0.03 X1000 (0.0-0.04); IMM GRAN% 0.2 % (0.0-0.5); LYMPH# 0.89 X1000 (1.2-3.4); LYMPH% 6.5 % (20.5-51.1); MCH 28.7 PG (27-31); MCHC 31.5 g/dL (33-37); MCV 90.9 FL (81-99); MONO# 1.09 X1000 (0.11-0.59); MPV 9.3 FL (7.4-10.4); NEUT# 11.59 X1000 (1.4-6.5); NEUT% 84.6 % (42.2-75.2); PLT 337 X1000 (130-400); RBC 3.63 XMIL (4.7-6.1)
[2019-02-21] MEDS: ASPIRIN PO SCH (09:08)
[2019-02-21] MEDS: LANOXIN PO SCH (09:08)
[2019-02-21] MEDS: AUGMENTIN PO SCH (09:08)
[2019-02-21] MEDS: QUESTRAN LIGHT PO SCH ×2 (09:08→20:00)
[2019-02-21] MEDS: PRILOSEC PO SCH (09:08)
[2019-02-21] MEDS: COREG PO SCH ×3 (09:08→20:01)
[2019-02-21] MEDS: LANTUS INSULIN SUBQ SCH (09:09)
[2019-02-21] MEDS ORDERED: LASIX IV ONE (15:31)
[2019-02-21] MEDS ORDERED: DUONEB (A & A) INH PRN (15:39)
[2019-02-21 15:50] LABS: ALLEN TEST YES; BE -3.8 mmoll (-3.0-3.0); BLOOD TYPE ARTERIAL; METHB 1.4 % (0.0-1.5); O2(CT) 16.7 mL/dL (15.0-23.0); PO2(98.6) 330 mmHg (60-100); SAMPLE BLOOD; SAO2 100.3 % (95.0-100.0); THB 11.6 g/dL (11.5-17.4)
[2019-02-21 15:53] LABS: PCO2(98.6) 86 mmHg (35-45); pH(98.6) 7.11 (7.35-7.45)
[2019-02-21 15:54] LABS: MODALITY NRB
--- NOTE | 2019-02-21 15:57 | Diag Imaging Result Doc PS360 ---
EXAM: CHEST-PORTABLE 02/21/2019 HISTORY: SOB TECHNIQUE: AP portable at 1545 COMMENT: The inspiration is suboptimal. There is increased central pulmonary vascularity compared to 02/11/2019. There is atelectasis or pneumonia over the right lower lobe which was also not present previously. IMPRESSION: Right lower lobe atelectasis versus pneumonia. The possibility of mild congestive heart failure cannot be excluded. Electronically signed by Adin Pastrana 02/21/2019 3:55 PM
[2019-02-21] MEDS: NITROGLYCERIN TOP SCH ×2 (16:00→22:38)
[2019-02-21 16:44] LABS: BASO# 0.01 X1000 (0.0-0.2); BASO% 0.1 % (0.0-0.8); EOS# 0.06 X1000 (0.0-0.7); EOS% 0.4 % (0.0-10.0); HEMATOCRIT 36.3 % (42.0-52.0); HEMOGLOBIN 11.3 g/dL (14.0-18.0); IMM GRAN# 0.06 X1000 (0.0-0.04); IMM GRAN% 0.4 % (0.0-0.5); LYMPH# 0.19 X1000 (1.2-3.4); LYMPH% 1.3 % (20.5-51.1); MCH 28.3 PG (27-31); MCHC 31.1 g/dL (33-37); MCV 90.8 FL (81-99); MONO% 0.7 % (1.7-9.3); MPV 9.4 FL (7.4-10.4); NEUT# 13.94 X1000 (1.4-6.5); NEUT% 97.1 % (42.2-75.2); PLT 339 X1000 (130-400); WBC 14.36 X1000 (4.8-10.8)
[2019-02-21] MEDS: ZYVOX 600 MG/D5W 600 MG/300 ML IVPB IV SCH (16:47)
[2019-02-21] MEDS: ZOSYN 4.5 GM in NS 100 ML IV SCH ×2 (16:58→22:38)
[2019-02-21 17:03] LABS: BANDS 13 % (0-1); LYMPHS 4 % (21-51); MONO 2 % (1-9); SEGS 80 % (42-75)
--- NOTE | 2019-02-21 17:04 | PROGRESS NOTE ---
DATE: 02/21/2019 SUBJECTIVE: This morning about 11 o'clock he reported that he felt very good and no complaints at all. Later on this afternoon around 3:30, became diaphoretic, short of breath and pulmonary rales and really looked like possible flash edema. He said he had some chest discomfort, but looked like he had trouble moving air, so plan to move him to the unit, put him on some nitroglycerin paste. I will give him some Lasix and he looks like he has remained in sinus rhythm. He has had triple bypass I think about a year ago and he has not had any events of chest pain recently. OBJECTIVE: Blood pressure was 160/80, pulse regular and 90, respiration rate about 18, did get up to about 24-26. Pupils are equal and round. Neck: No distended neck veins. Lungs: With rales at the bases, otherwise moving air on both sides. Cardiovascular: Regular rhythm rate without murmur or S3. Abdomen: Soft. Skin: Warm and dry. No new pedal edema. LABORATORY DATA: Reviewed lab from yesterday. Repeated lab this morning: White count was stable at 13,700, hematocrit 33, hemoglobin 10, platelet count 337,000 blood sugars [id number]. Chest x- ray just done: Right lower lobe atelectasis versus pneumonia, possible mild congestive heart failure. ASSESSMENT AND PLAN: 1. Diabetic foot infection status post debridement. Seems to be doing well from that standpoint. Multiple bacteria growing from the wound, but seems sensitive to the present regimen, right now he is on p.o. Augmentin. 2. Coronary artery disease status post coronary artery bypass grafting triple bypass. He has normal left ventricular function last we studied. We may want to look at it again. 3. Chronic obstructive pulmonary disease . He is not had any trouble with air or gas exchange. 4. Distended gallbladder aware, visualized on CT scan. 5. Diabetes mellitus type 2. Sugars have been under good control. 6. General weakness, deconditioning. Aware. 7. Loose stools, which improved. 8. Recent episode appears to be consistent with flash edema. I am going to move him to the unit. We will probably expand his antibiotics right now, but this appears to be mainly pulmonary venous hypertension. Aspirin, he is getting 325 mg a day. He is on his duo nebs, getting Tylenol as needed, Coreg 6.25 mg b.i.d., Lipitor 40 mg at bedtime, digoxin 125 mcg p.o. q.a.m., insulin glargine 10 units subcutaneous q.a.m., Lovenox 40 mg subcutaneous q.24 hours, normal saline at 82 mL an hour. We put him back on his Zosyn 4.5 g IV q.6 and linezolid 600 mg IV q.12. We will move him to the unit. I have started some Nitropaste and gave him 60 mg IV of Lasix. cc: MD Nathen Hdz MD
--- NOTE | 2019-02-21 17:11 | INFECTIOUS DISEASE PROGRESS NO ---
DATE: 02/21/2019 PRESENT ILLNESS: The patient is postop day #8 for having his left foot extensively incised and drained by Dr. Bacilio Peralta. Today, the patient became lethargic and developed respiratory failure. He may have developed a right lower lobe pneumonia. MEDICATIONS: The patient is on Augmentin. PHYSICAL EXAMINATION: Vital Signs: Temperature is 98 degrees, pulse 94, respirations 18, blood pressure 172/84. General: This is an ill-appearing elderly male. He is lethargic. He does not appear to be in any acute distress. Head/eyes/ears/nose/throat: No drainage noted from the nose or ears. He did not respond to verbal stimuli, so I could not check how his hearing and vision were. Neck: No meningismus. Lungs: Clear to auscultation. Cardiovascular: Heart rate is regular. Abdomen: Soft and nontender. Extremities: The patient's left foot has a dressing on it. The dressing is intact. The right foot has a plantar ulcer which has resolved. Neurologic: As mentioned above, patient is very lethargic. He has shallow respirations. He did not respond to verbal stimuli. There is no tremor. LAB AND X-RAY: Chest x-ray shows right lower lobe pneumonia/atelectasis. Also, the x-ray shows congestive heart failure. CBC shows a white count of 13,700, hemoglobin 10.4, platelet count 337,000. The patient's pH is 7.11, PO2 is 330, pCO2 is 86. ASSESSMENT AND PLAN: This is the 8th postoperative day since the patient's foot surgery. He may well have developed a pneumonia and he appears to be in respiratory failure. He may have aspirated. I have discontinued Augmentin and have placed the patient on a combination of Zyvox and Zosyn. COMORBIDITIES: The patient is elderly and he is a diabetic. He also has peripheral vascular disease. cc: MD Nathen Shi MD
[2019-02-21] MEDS: NS 1,000 ML IV SCH (17:24)
[2019-02-21 17:36] LABS: AGAP 11; BUN 21 mg/dL (8-22); CALCIUM 7.9 mg/dL (8.8-10.2); CHLORIDE 107 mmol/L (98-107); COSMO 289; CREATININE 0.9 mg/dL (0.7-1.2); ESTIMATED GFR > 60; GLUCOSE 144 mg/dL (70-104); POTASSIUM 5.5 mmol/L (3.5-5.1); SODIUM 142 mmol/L (136-145); TCO2 24 mmol/L (25-35)
[2019-02-21 19:04] LABS: URINE SOURCE CATH
[2019-02-21 19:06] LABS: BILIRUBIN URINE NEGATIVE (NEGATIVE); BLOOD URINE LARGE (NEGATIVE); COLOR YELLOW; GLUCOSE URINE NEGATIVE (NEGATIVE); KETONE URINE NEGATIVE (NEGATIVE); LEUKOCYTES URINE NEGATIVE (NEGATIVE); NITRITE URINE NEGATIVE (NEGATIVE); PROTEIN URINE NEGATIVE (NEGATIVE); SP GRAVITY URINE 1.008; TURBIDITY URINE HAZY (CLEAR); UR EPITHELIAL CELLS <10 /HPF (<10); URINE BACTERIA NEGATIVE /HPF; URINE RBC TNTC /HPF (<10); URINE WBC <10 /HPF (<10); UROBILINOGEN URINE NORMAL (NORMAL)
[2019-02-21] MEDS: DUONEB (A & A) INH SCH ×2 (19:46→23:12)
[2019-02-21] MEDS: LIPITOR PO SCH ×2 (19:53→20:00)
[2019-02-21] MEDS: MORPHINE IV PRN (20:57)
[2019-02-22] MEDS: LOVENOX SUBQ SCH ×2 (00:17→00:22)
[2019-02-22] MEDS: MORPHINE IV PRN ×2 (01:46→06:38)
[2019-02-22] MEDS: ZYVOX 600 MG/D5W 600 MG/300 ML IVPB IV SCH ×2 (03:42→15:22)
[2019-02-22] MEDS: NITROGLYCERIN TOP SCH ×4 (03:42→20:49)
[2019-02-22] MEDS: ZOSYN 4.5 GM in NS 100 ML IV SCH ×4 (03:42→22:38)
[2019-02-22] MEDS: DUONEB (A & A) INH SCH ×5 (08:00→23:46)
--- NOTE | 2019-02-22 08:31 | PROGRESS NOTE ---
DATE: 02/22/2019 SUBJECTIVE: Mr. Munoz feels much better. Breathing is much more comfortable. He is in ICU bed 16. He has remained afebrile. He is in sinus rhythm. OBJECTIVE: Vital Signs: Temperature 99.1 degrees, pulse 107, respirations 20, blood pressure 167/68. Eyes: Pupils are equal and round. Lungs: Clear in all lung delarosa. Cardiovascular exam: Regular rhythm and rate without murmur or S3. Abdomen: Soft. Skin: Warm and dry. : Urine output 3000 mL. Blood sugar 217, 160 and 177. ASSESSMENT AND PLAN: 1. This is postoperative day 8. Left foot extensively excised and debrided per Dr. Peralta. He did become short of breath and appeared to have pulmonary edema, what looked like flash edema. I moved him to the unit, gave him some Lasix and nitrate. He seemed to improve, supplementary oxygen helped. He was on p.o. Augmentin. We decided to expand his antibiotics, and make sure this was not sepsis or infection. So, may be developing some pneumonia. We will check another chest x-ray this morning. 2. History of coronary artery disease. Last time we checked, which was recently, he has normal left ventricular function. He has a history of triple bypass and sudden cardiac arrest before that. 3. Diabetes mellitus type 2. Blood sugars have been under good control. 4. Hypertension. 5. Hypercholesterolemia. 6. Loose stools. We have been giving him cholestyramine. Note he is on Zosyn and linezolid right now; Zosyn 4.5 g IV q. 6 hours and linezolid 600 mg IV q. 12 hours. I am going to check some electrolytes this morning and CBC and another chest x-ray. cc: MD Nathen Hdz MD
--- NOTE | 2019-02-22 08:50 | Diag Imaging Result Doc PS360 ---
EXAM: CHEST-PORTABLE 02/22/2019 HISTORY: pneumonia TECHNIQUE: AP portable at 0822 COMMENT: The inspiration is suboptimal. There is subsegmental atelectasis in the right base which has not changed significantly since 02/21/2019 but which was not present on 02/11/2019. There is also retrocardiac opacity in the left lower lobe. IMPRESSION: Bibasilar atelectasis versus pneumonia. Electronically signed by Adin Pastrana 02/22/2019 8:48 AM
[2019-02-22 09:32] LABS: CALCIUM 7.6 mg/dL (8.8-10.2); CREATININE 1.2 mg/dL (0.7-1.2); POTASSIUM 5.2 mmol/L (3.5-5.1)
[2019-02-22] MEDS: ASPIRIN PO SCH (10:00)
[2019-02-22] MEDS: LANOXIN PO SCH (10:00)
[2019-02-22] MEDS: COREG PO SCH ×2 (10:01→20:32)
[2019-02-22] MEDS: BIDEX PO SCH (10:01)
[2019-02-22] MEDS: PRILOSEC PO SCH (10:02)
[2019-02-22] MEDS: LANTUS INSULIN SUBQ SCH (10:03)
[2019-02-22] MEDS: QUESTRAN LIGHT PO SCH ×2 (10:03→20:36)
--- NOTE | 2019-02-22 14:00 | GENERAL SURGERY PROGRESS NOTE ---
DATE: 02/22/2019 Mr. Munoz's dorsum of his left foot actually looks quite healthy. He does have a palpable posterior tibial pulse. We will re-dress it using Vashe and continue antibiotic therapy. cc: MD Nathen Castro MD
[2019-02-22] MEDS: LIPITOR PO SCH (20:32)
[2019-02-22] MEDS: NORVASC PO SCH (23:19)
[2019-02-23] MEDS: LOVENOX SUBQ SCH (01:29)
[2019-02-23] MEDS: ZOSYN 4.5 GM in NS 100 ML IV SCH ×2 (03:50→09:58)
[2019-02-23] MEDS: NITROGLYCERIN TOP SCH ×4 (03:50→20:30)
[2019-02-23] MEDS: ZYVOX 600 MG/D5W 600 MG/300 ML IVPB IV SCH (03:52)
[2019-02-23 06:12] LABS: ALB/GLOB RATIO 0.4; ALBUMIN 1.4 g/dL (3.5-5.0); CALCIUM 7.7 mg/dL (8.8-10.2); CREATININE 1.3 mg/dL (0.7-1.2); MAGNESIUM 1.9 mg/dL (1.5-2.7); TOTAL BILIRUBIN 1.24 mg/dL (0.20-1.00); TOTAL PROTEIN 5.2 g/dL (6.3-8.3)
--- NOTE | 2019-02-23 07:08 | Diag Imaging Result Doc PS360 ---
EXAM: CHEST-PORTABLE 02/23/2019 HISTORY: pneumonia TECHNIQUE: AP portable at 0538 COMMENT: There is increased platelike atelectasis in the right middle lobe compared to 02/22/2019. Otherwise are has been no appreciable change. IMPRESSION: Worsened right middle lobe atelectasis. Electronically signed by Adin Pastrana 02/23/2019 7:06 AM
[2019-02-23] MEDS: DUONEB (A & A) INH SCH ×5 (07:52→23:23)
[2019-02-23 08:32] LABS: BASO# 0.02 X1000 (0.0-0.2); BASO% 0.2 % (0.0-0.8); EOS# 0.03 X1000 (0.0-0.7); EOS% 0.3 % (0.0-10.0); HEMATOCRIT 27.7 % (42.0-52.0); HEMOGLOBIN 8.6 g/dL (14.0-18.0); IMM GRAN# 0.03 X1000 (0.0-0.04); IMM GRAN% 0.3 % (0.0-0.5); LYMPH# 0.49 X1000 (1.2-3.4); LYMPH% 4.6 % (20.5-51.1); MCH 27.7 PG (27-31); MCV 89.4 FL (81-99); MONO# 0.83 X1000 (0.11-0.59); MONO% 7.8 % (1.7-9.3); MPV 10.9 FL (7.4-10.4); NEUT# 9.28 X1000 (1.4-6.5); NEUT% 86.8 % (42.2-75.2); PLT 67 X1000 (130-400); RDW 14.3 % (11.5-14.5); WBC 10.68 X1000 (4.8-10.8)
[2019-02-23 09:13] LABS: BANDS 8 % (0-1); LYMPHS 2 % (21-51); SEGS 90 % (42-75)
[2019-02-23 09:14] LABS: HYPOCHROM 1+
[2019-02-23] MEDS: LANOXIN PO SCH (09:59)
[2019-02-23] MEDS: COREG PO SCH ×2 (09:59→20:29)
[2019-02-23] MEDS: LANTUS INSULIN SUBQ SCH (10:00)
[2019-02-23] MEDS: BIDEX PO SCH (10:00)
[2019-02-23] MEDS: ASPIRIN PO SCH (10:00)
[2019-02-23] MEDS: PRILOSEC PO SCH (10:00)
[2019-02-23] MEDS: QUESTRAN LIGHT PO SCH ×2 (10:03→20:29)
[2019-02-23] MEDS: ZOFRAN IV PRN ×2 (11:22→16:07)
[2019-02-23] MEDS ORDERED: LASIX IV ONE (12:28)
--- NOTE | 2019-02-23 13:17 | INFECTIOUS DISEASE PROGRESS NO ---
DATE: 02/23/2019 PRESENT ILLNESS: This is postoperative day #10 for the patient's left foot which was extensively incised and drained by Dr. Bacilio Peralta. The patient had became lethargic and developed respiratory failure. On the x-ray, it appears now that the right middle lobe had atelectasis and not pneumonia. The patient's platelet count is dropping, most likely secondary to being on Zyvox. MEDICATION: The patient has been on Zyvox and Zosyn. PHYSICAL EXAMINATION: Vital Signs: Temperature is 98.7 degrees, pulse 95, respirations 20, blood pressure 168/69. General: This is an ill-appearing, elderly male. He is more alert than he was 2 days ago. He is not in any acute distress. Head, Eyes, Ears, Nose, and Throat: He can hear my spoken words and see near objects. He does not have any white coating on his tongue. Neck: No meningismus. Lungs: Clear to auscultation. Cardiovascular: Heart rate is regular. Abdomen: Soft and nontender. Extremities: The patient's right foot plantar wound is not purulent, and there is no surrounding erythema. The tendons are visible, however. Neurologic: Patient is more alert. He can move his extremities. There is no tremor. DIAGNOSTIC STUDIES: X-ray today shows that the right middle lobe abnormality was atelectasis and not pneumonia. CBC shows a white count of 10,680, hemoglobin 8.6, and platelet count 67,000. Creatinine is 1.3, GFR is 54. ASSESSMENT AND PLAN: 1. The patient has an infected left foot which underwent incision and drainage by Dr. Peralta. 2. The patient does not appear to have pneumonia. What was thought to be a right middle lobe pneumonia is actually right middle lobe atelectasis. My plan is to stop Zyvox and Zosyn and put the patient back on Augmentin. COMORBIDITIES: 1. The patient is elderly. 2. He is a diabetic. 3. He also has peripheral vascular disease. cc: MD Nathen Shi MD
--- NOTE | 2019-02-23 13:27 | CARDIOLOGY PROGRESS NOTE ---
DATE: 02/23/2019 CHIEF COMPLAINT: Shortness of breath. SUBJECTIVE: Mr. Munoz is still in the ICU after a bout of worsening shortness of breath. His chest x-ray shows atelectasis of the right lung. He denies having chest pain. His foot feels better. OBJECTIVE: Blood pressure is 168/69, temperature 98.7, pulse 95, respirations 20. He is awake, alert. He has high flow mask. HEENT: Unremarkable. Chest: Diminished breath sounds bilaterally. Heart: Sounds are regular and rhythmic. I do not hear a gallop or murmur. Abdomen: Nontender. Extremities: The left foot is wrapped. Neurologic: Follows commands, moves all 4 extremities. DIAGNOSTIC DATA: White cell count is 10,680, hemoglobin 8.6, hematocrit 27.7. His sodium is 134, potassium 5.0, BUN is 32, creatinine 1.3. IMPRESSION: 1. The patient developed respiratory failure. He does have atelectasis of right lung. 2. Chronic systolic heart failure. Ejection fraction is probably mild to moderately decreased acutely from sepsis infection. 3. History of coronary heart disease, previous bypass. 4. Hypercarbic respiratory failure. 5. Abscess/cellulitis of left foot. s/p incision/drainage. RECOMMENDATIONS: We will give him some Lasix. We will recheck blood gases. The patient may need a BiPAP system to help him blow off the carbon dioxide. We will follow him along. cc: MD Nathen Vargas MD [facility]
[2019-02-23 14:10] LABS: ALLEN TEST YES; BE 3.6 mmoll (-3.0-3.0); BLOOD TYPE ARTERIAL; HCO3-(ACT) 27.7 mmoll (20.0-26.0); METHB 1.3 % (0.0-1.5); O2(CT) 13.1 mL/dL (15.0-23.0); O2HB 96.7 % (95.0-99.0); PO2(98.6) 177 mmHg (60-100); SAMPLE BLOOD; SAO2 99.6 % (95.0-100.0); THB 9.3 g/dL (11.5-17.4); pH(98.6) 7.34 (7.35-7.45)
[2019-02-23 14:11] LABS: MODALITY VENTIMASK
[2019-02-23 14:12] LABS: PCO2(98.6) 56 mmHg (35-45)
--- NOTE | 2019-02-23 15:42 | PROGRESS NOTE ---
DATE: 02/23/2019 SUBJECTIVE: Mr. Munoz feels better. He is breathing better. Did note that his hematocrit and hemoglobin dropped from yesterday. He does not have any pain. No shortness of breath. He did use the BiPAP last night, but did not like it. Wanted to know if he could go off the BiPAP. PHYSICAL EXAMINATION: General: He is in ICU bed 16. Vital Signs: Temperature 98.7 degrees, pulse 93, respirations 18, blood pressure 176/64. HEENT: Pupils are equal and round. Lungs: Clear in all lung delarosa. Cardiovascular: Regular rhythm and rate without murmur or S3. Abdomen: Soft. Skin: Warm and dry. No pedal edema. His legs are wrapped and dry. Left foot is dry. Bandage is dry. LABORATORY DATA: Urine output was 13 and almost 14 hundred mL. ASSESSMENT AND PLAN: 1. Postoperative day 10 for debridement of left foot extensively excised and drained per Dr. Bacilio Peralta. He had an episode of what appeared to be flash edema and respiratory distress. We moved to the unit. He has done much better. We did give him some Lasix and put him on some Nitropaste. 2. History of coronary artery disease. Has mild left ventricular dysfunction. Episode recently that resembles flash edema. 3. Diabetes mellitus type 2. Sugars under good control. 4. Weakness and deconditioning. Been in the bed for a long time, so we are going to need to continue physical therapy. 5. He is having loose stools, and this seems to have improved. 6. He has chronic obstructive pulmonary disease. He has been using BiPAP. Appears to have good air and gas exchange. Hopefully, can move him to the floor tomorrow, and we can stop the BiPAP. 7. Reviewed his orders from today. Norvasc 5 mg at bedtime. He is on Augmentin 875 mg p.o. q.12, aspirin 325 mg a day, Lipitor 40 mg at bedtime, Coreg 6.25 mg b.i.d., cholestyramine 4 g b.i.d., Lanoxin 125 mcg q.a.m., guaifenesin 1200 mg daily, Lantus 10 units subcutaneous q.a.m., and Prilosec 40 mg daily. LABORATORY DATA: Review of his recent lab this morning, I did note that he has an anemia which appears normocytic, but hematocrit is down to 27, hemoglobin 8.6, and platelet count did drop as well. Platelets dropped down to 67,000, so we will check again in the morning. cc: MD Nathen Hdz MD
[2019-02-23] MEDS: AUGMENTIN PO SCH (18:14)
[2019-02-23] MEDS: MORPHINE IV PRN (18:18)
[2019-02-23] MEDS: NORVASC PO SCH (20:29)
[2019-02-23] MEDS: LIPITOR PO SCH (20:29)
[2019-02-24] MEDS: NITROGLYCERIN TOP SCH ×5 (02:39→21:20)
[2019-02-24] MEDS: LOVENOX SUBQ SCH (02:49)
[2019-02-24] MEDS: MORPHINE IV PRN ×2 (04:21→08:27)
[2019-02-24] MEDS: AUGMENTIN PO SCH ×2 (05:07→17:05)
[2019-02-24 06:16] LABS: BASO# 0.02 X1000 (0.0-0.2); BASO% 0.2 % (0.0-0.8); HEMOGLOBIN 8.9 g/dL (14.0-18.0); IMM GRAN# 0.04 X1000 (0.0-0.04); IMM GRAN% 0.3 % (0.0-0.5); LYMPH# 0.66 X1000 (1.2-3.4); LYMPH% 5.1 % (20.5-51.1); MCH 27.8 PG (27-31); MCHC 31.8 g/dL (33-37); MCV 87.5 FL (81-99); MONO# 0.96 X1000 (0.11-0.59); MONO% 7.5 % (1.7-9.3); NEUT# 11.18 X1000 (1.4-6.5); NEUT% 86.9 % (42.2-75.2); PLT 62 X1000 (130-400); RDW 14.3 % (11.5-14.5); WBC 12.86 X1000 (4.8-10.8)
[2019-02-24 06:47] LABS: CALCIUM 7.6 mg/dL (8.8-10.2); CREATININE 1.3 mg/dL (0.7-1.2)
--- NOTE | 2019-02-24 07:52 | INFECTIOUS DISEASE PROGRESS NO ---
DATE: 02/24/2019 PRESENT ILLNESS: This is postop day #11 for the patient's left foot, which was extensively incised and drained by Dr. Bacilio Peralta. The patient also has marked swelling in the right arm, and I am concerned that he may have a clot in the arm. The patient's platelet count also is getting lower. I think it might be due to the Zyvox that the patient was on, and yesterday I stopped it. MEDICATIONS: Yesterday, I stopped Zyvox and Zosyn, and put the patient on Augmentin. PHYSICAL EXAMINATION: Vital Signs: Temperature is 98.6 degrees, pulse 97, respirations 23, blood pressure 151/73. General: This is an ill-appearing, elderly male. He is awake. HEENT: He can hear my spoken words and see near objects. He does not have any white patches in his mouth. Neck: The patient does not seem to have any pain when he moves his neck or head. Lungs: Clear to auscultation. Cardiovascular: Heart rate is regular. On the monitor, I saw what appeared to be some premature beats. Abdomen: Soft and nontender. Extremities: I removed the dressing from the patient's left foot. There is no purulence. There is beefy red tissue. It looks like there is some granulation tissue starting to cover the patient's exposed tendons. The patient's right arm is swollen, but not erythematous. Neurologic: The patient is awake. He can move his extremities. There is no tremor. IMAGING AND LABORATORY DATA: CBC today shows a white count of 12,860, hemoglobin 8.9, platelet count 62,000. Creatinine is 1.3. GFR is 54. Blood cultures are negative. There is no radiographic study that has been done so far today. ASSESSMENT AND PLAN: The patient has an infected foot, which has been debrided. My plan is to continue Augmentin because the patient has exposed tendons. The patient has a swollen right arm. I have ordered a venous ultrasound study of the arm. COMORBIDITIES: The patient is elderly, he is diabetic, and he also has peripheral vascular disease. cc: MD Nathen Shi MD
[2019-02-24] MEDS: ASPIRIN PO SCH (08:20)
[2019-02-24] MEDS: BIDEX PO SCH (08:20)
[2019-02-24] MEDS: COREG PO SCH ×2 (08:20→21:20)
[2019-02-24] MEDS: PRILOSEC PO SCH (08:20)
[2019-02-24] MEDS: LANOXIN PO SCH (08:20)
[2019-02-24] MEDS: QUESTRAN LIGHT PO SCH ×2 (08:21→21:20)
[2019-02-24] MEDS: DUONEB (A & A) INH SCH ×5 (08:35→22:56)
--- NOTE | 2019-02-24 09:06 | EKG Report ---
Test Performed on : 02/21/2019 3:27:22 PM Test Reason : ICU. NO EKG ORDER FOR MUSE Blood Pressure : / mmHG Vent. Rate : 102 BPM Atrial Rate : 102 BPM P-R Int : 162 ms QRS Dur : 082 ms QT Int : 334 ms P-R-T Axes : 051 -19 -15 degrees QTc Int : 435 ms Sinus tachycardia. Inferior infarct , age undetermined Cannot rule out Anterior infarct , age undetermined Abnormal ECG When compared with ECG of 12-FEB-2019 12:45, premature ventricular complexes. are no longer present T wave inversion no longer evident in Anterior leads QT has shortened Confirmed by Zane Pappas MD ([id number]) on 02/25/2019 9:46:09 PM
[2019-02-24] MEDS: LANTUS INSULIN SUBQ SCH (10:06)
--- NOTE | 2019-02-24 10:49 | PROGRESS NOTE ---
DATE: 02/24/2019 SUBJECTIVE: Mr. Munoz is doing better. He had a good night. I think he is ready to move to the floor. Right arm is a little swollen. He has superficial DVT, but nothing deep. OBJECTIVE: Vital Signs: Temperature 98.1 degrees, pulse 93, respirations 21, blood pressure 163/78. HEENT: Pupils are equal and round. Lungs: Clear in all lung delarosa. Cardiovascular: Regular rhythm and rate without murmur or S3. Abdomen: Soft. Skin: Warm and dry. Urine output is 2800 mL. ASSESSMENT AND PLAN: 1. This is day 11 postoperative left foot debridement, extensively excised and drained per Dr. Bacilio Peralta. He did have some swelling in his right arm. Ultrasound was ordered, and he had apparently superficial deep venous thrombosis. He stopped the Zyvox and the Zosyn yesterday, and he is on oral Augmentin again, which he had multiple organisms that grew from the foot. These seem to all be covered by Augmentin. 2. He had an episode of trouble with fluid, and this may have just been fluid redistribution, but it had some appearances of flash edema. He is doing much better. I think we can move him back to the floor. 3. History of coronary artery disease, status post coronary artery bypass graft. 4. Diabetes mellitus type 2. Blood sugar is under good control. 5. General weakness and deconditioning. Continue physical therapy in hopes to get him home with home health towards the end of the week. cc: MD Nathen Hdz MD
--- NOTE | 2019-02-24 19:29 | GENERAL SURGERY PROGRESS NOTE ---
DATE: 02/24/2019 SUBJECTIVE: Doing okay. Respiratory symptoms, very fatigued, very weak. No fevers. No tachycardia. OBJECTIVE: Vital signs: Blood pressures have been in 150s to 160s. General: He is alert. Left foot: Dorsal wound is clean. There is some serosanguineous drainage from the plantar aspect where his Ainsley comes out and the skin is a little macerated, but there is no dhiraj necrosis. White count 12, it is up slightly. Hematocrit is 28. Creatinine is 1.3. ASSESSMENT AND PLAN: A 73-year-old gentleman with diabetic foot infection, seems to be clinically improving. Otherwise, he has had worsening of some other medical problems. We will continue local wound care. cc: MD Nathen Finch MD
[2019-02-24] MEDS: LIPITOR PO SCH (21:20)
[2019-02-24] MEDS: NORVASC PO SCH (21:20)
[2019-02-25] MEDS: NITROGLYCERIN TOP SCH ×3 (04:30→16:49)
[2019-02-25] MEDS: LOVENOX SUBQ SCH (04:51)
[2019-02-25] MEDS: AUGMENTIN PO SCH ×3 (05:52→17:09)
[2019-02-25] MEDS: DUONEB (A & A) INH SCH ×5 (07:27→23:21)
--- NOTE | 2019-02-25 10:16 | PROGRESS NOTE ---
DATE: 02/25/2019 SUBJECTIVE: Mr. Munoz had a good night, is feeling better. Ate a little breakfast. Breathing is comfortable. Remains afebrile. OBJECTIVE: Vital Signs: Temperature 98.5 degrees, pulse 89, respirations 20, blood pressure 142/60. HEENT: Pupils are equal and round. Lungs: Clear in all lung delarosa. Cardiovascular: Regular rhythm and rate without murmur or S3. Abdomen: Soft. Skin: Warm and dry. Urine output is 2000 mL. Blood sugar 161, 131, 141. LABS: Hematocrit is 28, hemoglobin 8.9, and this has been stable. ASSESSMENT AND PLAN: 1. Postoperative day 12 for foot debridement, extensive excision with soft tissue infection. Patient is back on Augmentin. He had multiple organisms growing out. 2. Episode of trouble with breathing. It looked like either mucous plugging or sudden flash edema but this seemed to improve. We did move him up to the unit for a time. Breathing comfortably now. He does have a fairly normal ventricle, maybe mild systolic dysfunction. No sign of active ischemia. 3. History of coronary artery disease. 4. Diabetes mellitus, type 2. Blood sugars appear well controlled. 5. Weakness and deconditioning. Continue physical therapy. The hope is he can get home with home health. He has got occupational therapy and physical therapy going. Review of his orders, I do not see any changes. cc: MD Nathen Hdz MD
[2019-02-25] MEDS: BIDEX PO SCH (10:59)
[2019-02-25] MEDS: COREG PO SCH (11:00)
[2019-02-25] MEDS: PRILOSEC PO SCH (11:00)
[2019-02-25] MEDS: ASPIRIN PO SCH (11:00)
[2019-02-25] MEDS: LANTUS INSULIN SUBQ SCH (11:00)
[2019-02-25] MEDS: QUESTRAN LIGHT PO SCH (11:01)
[2019-02-25] MEDS: LANOXIN PO SCH (11:02)
[2019-02-25] MEDS: MORPHINE IV PRN (14:26)
[2019-02-25] MEDS ORDERED: OXY IR PO PRN (14:42)
--- NOTE | 2019-02-25 15:34 | Diag Imaging Result Doc PS360 ---
EXAM: XRAY HIP UNILATERAL RT HISTORY: right hip pain TECHNIQUE: Right hip, three views COMPARISON: None. FINDINGS: Mild joint space narrowing. No fracture or dislocation identified. IMPRESSION: Mild arthritis. Electronically signed by Nicho Damico 02/25/2019 3:32 PM
[2019-02-25] MEDS ORDERED: MAXIPIME 2 GM in NS 100 ML IV SCH (16:30)
[2019-02-25] MEDS ORDERED: ZYVOX 600 MG/D5W 600 MG/300 ML IVPB IV SCH (16:30)
--- NOTE | 2019-02-25 16:47 | EKG Report ---
Test Performed on : 02/25/2019 4:39:48 PM Test Reason : hypotension Blood Pressure : / mmHG Vent. Rate : 069 BPM Atrial Rate : 069 BPM P-R Int : 142 ms QRS Dur : 082 ms QT Int : 402 ms P-R-T Axes : 044 -19 095 degrees QTc Int : 430 ms Sinus rhythm. with occasional premature ventricular complexes. Nonspecific T wave abnormality Abnormal ECG When compared with ECG of 21-FEB-2019 15:27, (Unconfirmed) premature ventricular complexes. are now present Confirmed by Zane Pappas MD ([id number]) on 02/26/2019 4:51:25 PM
--- NOTE | 2019-02-25 17:05 | Diag Imaging Result Doc PS360 ---
EXAM: CHEST-1 VIEW HISTORY: pneumonia TECHNIQUE: Chest single view COMPARISON: 02/23/2019 FINDINGS: Suboptimal inspiratory effort. Sternal wires are present. The heart is mildly prominent. Mild increased interstitial markings. These are less pronounced than on the prior study. Small pleural effusions. IMPRESSION: Mild interval improvement although there continues to the marked suboptimal inspiration. Electronically signed by Nicho Damico 02/25/2019 5:03 PM
[2019-02-25 18:03] LABS: BASO# 0.02 X1000 (0.0-0.2); BASO% 0.2 % (0.0-0.8); EOS# 0.02 X1000 (0.0-0.7); EOS% 0.2 % (0.0-10.0); HEMATOCRIT 23.5 % (42.0-52.0); HEMOGLOBIN 7.2 g/dL (14.0-18.0); IMM GRAN# 0.05 X1000 (0.0-0.04); IMM GRAN% 0.5 % (0.0-0.5); LYMPH# 0.99 X1000 (1.2-3.4); LYMPH% 9.2 % (20.5-51.1); MCH 27.2 PG (27-31); MCHC 30.6 g/dL (33-37); MCV 88.7 FL (81-99); MONO# 1.12 X1000 (0.11-0.59); MONO% 10.4 % (1.7-9.3); MPV 12.2 FL (7.4-10.4); NEUT# 8.52 X1000 (1.4-6.5); NEUT% 79.5 % (42.2-75.2); PLT 80 X1000 (130-400); RBC 2.65 XMIL (4.7-6.1); RDW 14.2 % (11.5-14.5); WBC 10.72 X1000 (4.8-10.8)
[2019-02-25 18:37] LABS: ALB/GLOB RATIO 0.4; ALBUMIN 1.4 g/dL (3.5-5.0); CALCIUM 8.1 mg/dL (8.8-10.2); CREATININE 1.7 mg/dL (0.7-1.2); TOTAL BILIRUBIN 0.9 mg/dL (0.20-1.00); TOTAL PROTEIN 5.1 g/dL (6.3-8.3)
[2019-02-25] MEDS ORDERED: NS 1,000 ML IV SCH (18:45)
[2019-02-25 18:53] LABS: POTASSIUM 6.3 mmol/L (3.5-5.1)
--- NOTE | 2019-02-25 18:55 | PROGRESS NOTE ---
DATE: 02/25/2019 SUBJECTIVE: He has remained diaphoretic this afternoon, very weak. He has had some diarrhea. OBJECTIVE: Vital signs: Temperature is 97.4 degrees, pulse 75, respirations 20, blood pressure 86/43. General: He is very lethargic. HEENT: Pupils are equal and round. Lungs: Clear anterolateral. His O2 saturations look good on nasal cannula. Cardiovascular: Regular rhythm and rate without murmur or S3. He denies any chest pain or abdominal pain. Extremities: No pedal edema. Skin: He appears pale and very diaphoretic. Urine output is 2000 mL. LABORATORY: Blood sugar 161, 131, 194. He was complaining of pain in his right hip. We did an x- ray. There is mild space narrowing but no sign of fracture. His white count is down to 10,720, hematocrit was 23, hemoglobin 7.2, platelet count 80,000. He seemed to feel fine this morning and he did sit up at the side of the bed for a while. ASSESSMENT AND YOU: His chest x-ray today, this morning, mild interval improvement, continues to be marked suboptimal inspiration, but no sign of definite infiltrate. I am going to move him to the unit. I am concerned about sepsis and I think Dr. Dangelo has expanded his coverage to include fungal. So, we are putting him back on cefepime 2 g IV q.12, linezolid 600 mg q.12, and I think we are going to add micafungin, we are going to consider that. Took some more cultures. We will check some more electrolytes now and in the morning. I am going to move him to the unit. I have discussed with his daughter and granddaughter. We will check another chest x-ray in the morning. I am going to increase his fluids. We will check another chest x-ray and electrolytes in the morning. cc: MD Nathen Hdz MD
--- NOTE | 2019-02-25 19:21 | INFECTIOUS DISEASE PROGRESS NO ---
DATE: 02/25/2019 PRESENT ILLNESS: Mr. Munoz is on postop day 12 for excision and drainage of his left diabetic foot infection, which has grown Proteus mirabilis, Escherichia coli, Enterococcal faecalis, and Bacteroides fragilis. MEDICATIONS: Today is day 2 of Augmentin 875 by mouth every 12 hours. PHYSICAL EXAMINATION: Vital Signs: Temperature is 97.5 degrees, pulse rate 91, respiratory rate 20, blood pressure 140/65, and O2 saturation is 98% on 3 L nasal cannula. General: This is a chronically ill-appearing, elderly gentleman. He is lying in the bed, currently lethargic, but arousable, in no acute distress. HEENT: Atraumatic, normocephalic. Oral mucous membranes are pink and dry. Conjunctivae are pale. Neck: Supple. Trachea is midline. Cardiovascular: Heart rate and rhythm are regular. Normal sinus rhythm on the monitor. Respiratory: Lung sounds are clear to auscultation upper lobes, diminished in the bases with some mild rales. Abdomen: Soft, obese, and mildly tender to palpation. Bowel sounds are active. Integumentary: Skin is warm and moist. He is currently diaphoretic. There is a dressing with Sree wrap in place to his left lower extremity. He has bilateral lower extremity pitting edema pretibially, 2+. Neurologic: He is drowsy and lethargic, but arousable. Will answer questions appropriately and doze off again. LABORATORY AND X-RAY: None available today. ASSESSMENT AND PLAN: Mr. Munoz is being treated for a diabetic foot ulcer on the left, with multiple organisms that have grown. At this point, he is receiving Augmentin, which we will continue. There has been a mild increase in his white count. I have put in orders for blood work tomorrow. He is diaphoretic and lethargic, so I have asked the nurse to check his blood sugar. These plans have been discussed with and recommended by Dr. Dangelo. COMORBIDITIES: for Mr. Munoz include that he is elderly and obese, with diabetes mellitus and peripheral vascular disease. Dictated by GENIA Bertrand for Juan Dangelo MD cc: MD Nathen Shi MD [facility]
[2019-02-25 19:47] VITALS: BP 81/52
--- NOTE | 2019-02-25 20:09 | INFECTIOUS DISEASE PROGRESS NO ---
DATE: 02/25/2019 ADDENDUM: The patient has become diaphoretic, pale and his blood pressure is dropping. I have ordered on the patient a CBC, a CMP, a CPK, blood cultures, chest x-ray, and an EKG. I have discontinued Augmentin and placed the patient on daptomycin and cefepime. cc: MD Nathen Shi MD
[2019-02-25] MEDS: ZOFRAN IV PRN (20:39)
[2019-02-25] MEDS ORDERED: LOVENOX SUBQ SCH (21:00)
[2019-02-25] MEDS ORDERED: CALCIUM CHLORIDE SYRINGE ONE (22:35)
[2019-02-25] MEDS ORDERED: EPINEPHRINE SYRINGE ONE (22:35)
--- NOTE | 2019-02-25 23:20 | DISCHARGE SUMMARY ---
ADMISSION DATE: 02/11/2019 DISCHARGE DATE: HOSPITAL COURSE: This is a 73-year-old brought into the emergency room with general weakness and diarrhea, complaining about his foot. He had bandages on both feet, but the left foot was swollen. Full-thickness ulcer with foul-smelling anaerobic odor to it. He was admitted. He has a history of coronary artery disease, status post CABG. He actually had sudden heart while playing pool. He received CPR and went to [facility], where he had triple bypass surgery. For a while left ventricular dysfunction, ejection fraction 15% to 20%, but his left ventricular function has returned subsequently. His heart attack was in 06/2017. His last echocardiogram was a couple of months ago, and he had an ejection fraction above 40%. He is status post left carotid endarterectomy; history of previous acute pyelonephritis in 2005; drainage of perirectal abscess in 2008; he has had plantar ulcers which have been treated per Dr. Gore. Dr. Bacilio Peralta performed surgery and debrided the left foot, and he did not see infection that went down into the bone. He tolerated that well. Infectious Disease was involved. He had multiple organisms that grew out Bacteroides fragilis, Proteus mirabilis, Escherichia coli and Enterococcus faecalis. He seemed to improve. We switched him to p.o. Augmentin. He developed an episode of shortness of breath with what looked like pulmonary venous hypertension. We moved him to the unit, gave him some nitrates and some Lasix, and supplementary O2. He seemed to improve. We moved him back to the floor. He seemed to be improving. On the morning of 02/25/2019 he felt much better, wanted to pursue rehab and sat up on the side of the bed. Later that afternoon he became very diaphoretic, pale and short of breath. Blood pressure seemed to drop. Concerned about ongoing infection and sepsis, making plans to move him to the unit. We broadened his antibiotics. I stopped his Norvasc and his nitroglycerin paste, but he continued to deteriorate. He coded. Urine output was poor. We had increased his fluids. O2 saturations were 76% on 3 L. He was diaphoretic and cool. We went ahead and put him on empiric Lovenox, concerned about a possible blood clot; however, he stopped respirations and lost a pulse. They called a code. CPR was run, and the patient did not survive. I was called at around 2201 hours. The patient was pronounced at 2203 hours. He had shallow breathing, pale, gasping for air. Code was called at 2024 hours and the patient at 2202 hours. Family is aware. cc: MD Nathne Hdz MD
--- NOTE | 2019-03-01 03:02 | Extremity Venous Study ---
PROCEDURE NAME: Venous U/S Right Arm - 02/24/2019 PROCEDURE PERFORMED: Right upper extremity venous duplex and color flow imaging study using the [employer] Vivid E9 Ultrasound System with a 9L-D transducer. REFERRING PHYSICIAN: Juan Dangelo. IDENTIFICATION: A 73-year-old male. ADDICTIONS RECOVERY SPECIALIST: Kelly Saunders RVT. INDICATIONS: Edema involving the right upper extremity. FINDINGS: The right internal jugular vein was compressible throughout its length. The right subclavian and axillary veins had flow through them without evidence of thrombus. The right brachial vein in the arm was compressible throughout its length. There was an acute clot involving the right cephalic vein from the elbow to distal forearm. The basilic vein was compressible throughout its length. INTERPRETATION: 1. No evidence of acute deep venous thrombosis involving the veins of the right upper extremity. 2. An acute superficial venous thrombosis involving the right cephalic vein from the elbow to the distal forearm. cc: MD Juan Tavera MD Russell T. Barr, MD
== END 2019-02-25 21:44 | disposition expired | DRG 987 ==
LOC: SUPCPDRO → ED 15:16 → 3N 23:12 → SUATTDRO 23:12 → ICU 02-12 18:51 → 3N 02-14 15:28 → ICU 02-21 16:42 → 4N 02-24 11:45
PROVIDERS: ADMIT Internal Medicine; ATTEND Emergency Medicine
CPT/HCPCS: 31500; 71010; 71045; 71250; 73502; 73630; 76700; 80048; 80053; 81001; 82550; 82805; 82948; 83036; 83735; 83880; 84484; 85025; 85379; 85610; 85651; 85730; 86140; 87040; 87070; 87075; 87077; 87186; 87205; 87324; 87449; 88304; 89055; 92950; 93005; 93010; 93306; 93971; 94640; 94660; 94761; 96361; 96365; 97162; 97166; 97530; 99285; A9270; C8929; J0131; J0171; J0692; J1650; J1815; J1885; J1940; J1956; J2020; J2270; J2405; J2543; J7030; J7040; Q9957; XXXXX